=== PATIENT | male | born 1945 | race Caucasian/White ===

== ENCOUNTER 2018-04-13 15:58 | Emergency (ER) | payer OTHER, MEDICAID ==
[~2018-04-13] VITALS: Ht 160 cm; Wt 61.2 kg
[2018-04-13 16:00] VITALS: BP_SYST 100; BP_SYST 85
[2018-04-13 16:28] LABS: BASOPHILS % (AUTO) 0.8 % (0.0-2.0); EOSINOPHILS # (AUTO) 0.3 K/uL (0.0-0.4); EOSINOPHILS % (AUTO) 6.6 % (0.0-4.0); HEMATOCRIT 35.3 % (36-54); HEMOGLOBIN 11.3 g/dL (14.0-18.0); LYMPHOCYTES % (AUTO) 19.3 % (20.5-51.5); MEAN CORPUSCULAR HEMOGLOBIN 28 pg (27-31); MEAN CORPUSCULAR HGB CONC 32 % (32-36); MEAN CORPUSCULAR VOLUME 87 fL (79.0-98.0); MONOCYTES # (AUTO) 0.4 K/uL (0.0-1.0); MONOCYTES % (AUTO) 6.9 % (1.7-9.3); NEUTROPHILS # (AUTO) 3.4 K/uL (1.8-7.7); NEUTROPHILS % (AUTO) 66.4 % (40.0-70.0); PLATELET COUNT (AUTO) 205 K/uL (130-430); RED BLOOD CELL COUNT(AUTO) 4.06 MIL/uL (4.2-6.2); RED CELL DISTRIBUTION WIDTH 15.4 % (9.0-15.0); WHITE BLOOD COUNT (AUTO) 5.1 K/uL (4.8-10.8)
[2018-04-13 16:35] LABS: ANION GAP 7 (5-15); CALCIUM 8.4 mg/dL (8.4-11.0); CHLORIDE 102 mmol/L (98-107); CREATININE 0.92 mg/dL (0.55-1.30); GLUCOSE 103 mg/dL (70-99); POTASSIUM 3.7 mmol/L (3.5-5.1); SODIUM SERUM 139 mmol/L (136-145); UREA NITROGEN, BLOOD 18 mg/dL (8-21)
[2018-04-13] MEDS ORDERED: TIZA4TAB11 PO (16:36)
[2018-04-13] MEDS ORDERED: PIMA17TA PO (16:36)
[2018-04-13] MEDS ORDERED: ASCO500T20 PO (16:36)
[2018-04-13] MEDS ORDERED: NEU300 PO (16:36)
[2018-04-13] MEDS ORDERED: MULT PO (16:36)
[2018-04-13] MEDS ORDERED: CARB-62 PO (16:36)
[2018-04-13] MEDS ORDERED: PRAM0.5T3 PO (16:36)
[2018-04-13 16:47] LABS: ALANINE AMINOTRANSFERASE 9 U/L (12-78); ALBUMIN 3.1 g/dL (3.4-4.8); ASPARTATE AMINOTRANSFERASE 18 U/L (10-37); TOTAL BILIRUBIN 0.5 mg/dL (0.0-1.0)
[2018-04-13] MEDS ORDERED: LIDOCAINE 1% 10 MG/ML, 20 ML MDV INJ ONE (17:00)
[2018-04-13] MEDS ORDERED: LIDOCAINE/EPI 1% 1:100000 20 ML VIAL INJ ONE ×2 (17:21→17:30)
[2018-04-13 17:45] VITALS: BP_SYST 152
[2018-04-13] MEDS ORDERED: PRO40 PO (18:28)
[2018-04-13] MEDS ORDERED: HYDR-4100 PO (18:28)
[2018-04-13] MEDS ORDERED: DICL100G16 TP (18:28)
[2018-04-13] MEDS ORDERED: LIDOINT TP (18:28)
[2018-04-13] MEDS ORDERED: VITD2000 PO (18:28)
[2018-04-13] MEDS ORDERED: PRO20 PO (18:28)
== END 2018-04-13 18:15 | disposition home or self-care (01) ==
LOC: SED 15:58
DX: S01.81XA Laceration without foreign body of other part of head, initial encounter (principal); I10 Essential (primary) hypertension; G20 Parkinson's disease; Z87.442 Personal history of urinary calculi; Z79.899 Other long term (current) drug therapy; W01.198A Fall on same level from slipping, tripping and stumbling with subsequent striking against other object, initial encounter; Y93.89 Activity, other specified; Y92.89 Other specified places as the place of occurrence of the external cause; Y99.8 Other external cause status
CPT/HCPCS: 12011; 36415; 70450; 71045; 80053; 84484; 85025; 93005; 99285; J2001

== ENCOUNTER 2019-02-01 16:17 | Inpatient (IN) | payer OTHER, MEDICAID ==
[~2019-02-01] VITALS: Ht 177.8 cm; Wt 83.0 kg
[2019-02-01 16:17] VITALS: BP_SYST 122
[~2019-02-01 16:17] MED LIST: ASCO500T20 PO; CARB-62 PO; DICL100G19 TP; HYDR-4100 PO; LIDOINT TP; MULT PO; NEU300 PO; PIMA17TA PO; PRAM0.5T3 PO; PRO20 PO; PRO40 PO; TIZA4TAB11 PO; VITD2000 PO
--- NOTE | 2019-02-01 16:17 | NUR ---
BROUGHT IN BY [facility] AND PLACED IN BED #3, TRIAGED AND REPORT GIVEN TO HELEN
--- NOTE | 2019-02-01 16:30 | NUR ---
ER at bedside examining patient.
--- NOTE | 2019-02-01 16:45 | NUR ---
Inserted 22g angiocath on the RAC. Patient tolerated well.
[2019-02-01] MEDS ORDERED: NS 500 ML IV ONE (17:00)
--- NOTE | 2019-02-01 17:10 | NUR ---
Patiient is currently received IVF. No signs of distress noted at the moment.
[2019-02-01 17:28] LABS: BASOPHILS % (AUTO) 0.4 % (0.0-2.0); EOSINOPHILS % (AUTO) 0.7 % (0.0-4.0); HEMATOCRIT 42.7 % (36-54); LYMPHOCYTES # (AUTO) 0.2 K/uL (1.0-5.5); LYMPHOCYTES % (AUTO) 5.1 % (20.5-51.5); MEAN CORPUSCULAR HEMOGLOBIN 31 pg (27-31); MEAN CORPUSCULAR HGB CONC 33 % (32-36); MEAN CORPUSCULAR VOLUME 94 fL (79.0-98.0); MONOCYTES # (AUTO) 0.2 K/uL (0.0-1.0); MONOCYTES % (AUTO) 3.8 % (1.7-9.3); NEUTROPHILS # (AUTO) 3.8 K/uL (1.8-7.7); PLATELET COUNT (AUTO) 159 K/uL (130-430); RED BLOOD CELL COUNT(AUTO) 4.53 MIL/uL (4.2-6.2); RED CELL DISTRIBUTION WIDTH 14.5 % (9.0-15.0); WHITE BLOOD COUNT (AUTO) 4.2 K/uL (4.8-10.8)
[2019-02-01 17:42] LABS: ANION GAP 0 (5-15); CALCIUM 9.1 mg/dL (8.4-11.0); CHLORIDE 102 mmol/L (98-107); GLUCOSE 106 mg/dL (70-99); POTASSIUM 4.2 mmol/L (3.5-5.1); SODIUM SERUM 132 mmol/L (136-145); UREA NITROGEN, BLOOD 19 mg/dL (8-21)
[2019-02-01 17:43] LABS: INR 1.1 (0.80-1.20); PROTHROMBIN TIME 11.3 SECS (9.5-12.5)
[2019-02-01 17:47] LABS: ALANINE AMINOTRANSFERASE 11 U/L (12-78); ALBUMIN 3.2 g/dL (3.4-4.8); ASPARTATE AMINOTRANSFERASE 20 U/L (10-37); TOTAL BILIRUBIN 1.6 mg/dL (0.0-1.0)
[2019-02-01] MEDS ORDERED: PIPERACILLIN/TAZO 3.375 GM in NS 50 ML IV ONE (18:15)
[2019-02-01] MEDS ORDERED: NACL 0.9% 1,000 ML IV ONE (18:15)
[2019-02-01] MEDS ORDERED: NACL 0.9% 2,000 ML IV ONE (18:15)
--- NOTE | 2019-02-01 18:42 | NUR ---
Waiting for a room Spoke with Nany MALIK. Stated that she will call back with a room
[2019-02-01 19:14] VITALS: BP_SYST 122
[2019-02-01] MEDS ORDERED: AZITHROMYCIN 500 MG in NS 250 ML IV ONE ×2 (19:15→23:00)
--- NOTE | 2019-02-01 19:20 | NUR ---
Hand off report given to NOC shift RN. Still waiting for a tele bed.
[2019-02-01] MEDS ORDERED: PIPERACILLIN/TAZOBACTAM 3.375 GM/VIAL (ZOSYN) IV ONE (19:35)
[2019-02-01] MEDS ORDERED: AZITHROMYCIN 500 MG/VIAL (ZITHROMAX) IV ONE (19:36)
[2019-02-01 20:09] VITALS: BP_SYST 125
--- NOTE | 2019-02-01 20:09 | NUR ---
ADMISSION NOTE Received patient from ER via paul, received report from CELIA GONZALEZ. Patient admitted with diagnosis of SEPSIS, PNEUMONIA. Patient oriented to hospital routine, call light, toileting and safety-patient verbalized understanding.
--- NOTE | 2019-02-01 20:09 | NUR ---
Transfer to Telemetry via ACLS protocol. Licensed nurse present. IV present no signs or symptoms of infiltration.
--- NOTE | 2019-02-01 20:09 | NUR ---
Patient will be admitted to care of Dr. Ji. Admitted to Telemetry unit. Will go to room 104A. Belongings list completed. Summary report printed. Report will be given at bedside.
--- NOTE | 2019-02-01 20:45 | NUR ---
NOTES: report given to me by nurse Vikki, admitted from ER.
[2019-02-01] MEDS: IPRATROPIUM/ALBUTEROL SULFATE 3 ML AMPUL.NEB (DUONEB) INH SCH (21:01)
[2019-02-01] MEDS ORDERED: DICLOFENAC SODIUM 1% TP PRN (21:30)
[2019-02-01] MEDS ORDERED: LIDOCAINE TOPICAL OINT 5%, 35 GM TP PRN (21:30)
[2019-02-01] MEDS ORDERED: ACETAMINOPHEN 650 MG SUPP.RECT RC PRN (21:30)
--- NOTE | 2019-02-01 22:00 | NUR ---
NOTES: pt. sleeping but arousable when checked, disoriented but knows his name and able to follow simple commands. VS was check and with temp 102, still waiting for admission orders. on cafeteria monitor and shows sinus rhythm. IV on rt. antecubital with NS infusing but site gets sluggish, IV zithromax just finished. IV pump keeps alarming, checked site and occluded, unable to flush.safety measures observed, bed alarm, pt. high risk for fall with history and also fell before admission. admission physical assessment done. noted skin abrasions on both knees. cleanse both knees and applied biatin dressing by nurse Florez.
--- NOTE | 2019-02-01 22:15 | NUR ---
NOTES: Dr. Ji here seen pt. with nurse Vikki, admission orders pending. aware of the fever, pt. already on antibiotic.
--- NOTE | 2019-02-01 23:30 | NUR ---
NOTES: complete bath and linen change, with diaper on arrival and soaked, incontinent of urine. noted skin on sacral/buttock area, appears red and irritated ( dermatitis) due to urinary incontinence. picture taken and triad cream applied after. another IV site inserted on rt. forearm and resume IVF.
--- NOTE | 2019-02-01 23:45 | NUR ---
NOTES: pt. grandson Rich called who is also his caregiver, gave some informations and updated on pt. status.
--- NOTE | 2019-02-02 00:10 | NUR ---
NOTES: rechecked temp 100.7, Tylenol po given as ordered and able to swallow pills. continue to monitor.
--- NOTE | 2019-02-02 01:00 | NUR ---
NOTES: recheck temp 98.4 via temporal.pt. sleeping.
[2019-02-02] MEDS ORDERED: PIPERACILLIN/TAZOBACTAM 3.375 GM/VIAL (ZOSYN) IV ONE (01:17)
[2019-02-02 01:20] VITALS: BP_SYST 129
[2019-02-02] MEDS: PIPERACILLIN/TAZO 3.375/DEX-IS 50 ML IV SCH ×4 (02:13→19:54)
--- NOTE | 2019-02-02 03:25 | NUR ---
NOTES: pt. sleeping when checked in no acute distress. HR @ 58 on the monitor per tech, continue to observe.
--- NOTE | 2019-02-02 04:46 | NUR ---
Consultation Paged Reason for Consultation: Ataxia Was consult called: Y Person who was notified: Dillan Consulting Physician: Evelio Mera (Mono Mishra commissioning agent) Regional Environmental Manager Phone Number: Dr. Marin's Phone number [phone] Ordering Physician: Dr. Ji
--- NOTE | 2019-02-02 06:00 | NUR ---
NOTES: condition unchanged. IV lock on rt. forearm and left ac. IV NS 2 liters infused. pt. incontinent of urine. for further care and assistance. maintained bed rest. sched for CT of chest. call light within reach. bed rails up, bed alarm on.call light within reach.
[2019-02-02 06:40] LABS: BASOPHILS % (AUTO) 0.3 % (0.0-2.0); EOSINOPHILS # (AUTO) 0.1 K/uL (0.0-0.4); EOSINOPHILS % (AUTO) 0.9 % (0.0-4.0); HEMATOCRIT 35.5 % (36-54); HEMOGLOBIN 11.8 g/dL (14.0-18.0); LYMPHOCYTES # (AUTO) 0.6 K/uL (1.0-5.5); LYMPHOCYTES % (AUTO) 11.3 % (20.5-51.5); MEAN CORPUSCULAR HEMOGLOBIN 31 pg (27-31); MEAN CORPUSCULAR HGB CONC 33 % (32-36); MEAN CORPUSCULAR VOLUME 93 fL (79.0-98.0); MONOCYTES # (AUTO) 0.4 K/uL (0.0-1.0); MONOCYTES % (AUTO) 7.9 % (1.7-9.3); NEUTROPHILS # (AUTO) 4.5 K/uL (1.8-7.7); NEUTROPHILS % (AUTO) 79.6 % (40.0-70.0); PLATELET COUNT (AUTO) 129 K/uL (130-430); RED BLOOD CELL COUNT(AUTO) 3.83 MIL/uL (4.2-6.2); RED CELL DISTRIBUTION WIDTH 14.7 % (9.0-15.0); WHITE BLOOD COUNT (AUTO) 5.7 K/uL (4.8-10.8)
[2019-02-02 06:43] LABS: ANION GAP 6 (5-15); CHLORIDE 106 mmol/L (98-107); CREATININE 0.94 mg/dL (0.55-1.30); GLUCOSE 96 mg/dL (70-99); POTASSIUM 3.4 mmol/L (3.5-5.1); SODIUM SERUM 139 mmol/L (136-145); UREA NITROGEN, BLOOD 18 mg/dL (8-21)
--- NOTE | 2019-02-02 06:54 | NUR ---
CLOSING NOTES; PT. STILL ASLEEP, NO ACUTE DISTRESS. ON ROOM AIR. IV LOCK INTACT. BOTH KNEE DRESSING INTACT.
[2019-02-02] MEDS: IPRATROPIUM/ALBUTEROL SULFATE 3 ML AMPUL.NEB (DUONEB) INH SCH ×5 (07:41→19:57)
--- NOTE | 2019-02-02 08:00 | NUR ---
Initial notes: Patient awake, alert and oriented. Stable. I.V. access patent. Call light within reach. Safety measures in placed. Report received from CELIA Salvador.
[2019-02-02 08:10] VITALS: BP_SYST 110
[2019-02-02] MEDS: PRAMIPEXOLE DI-HCL 0.25 MG TABLET PO SCH ×3 (08:47→20:06)
[2019-02-02] MEDS: ASCORBIC ACID 500 MG TABLET PO SCH (08:47)
[2019-02-02] MEDS: MULTIVITAMINS TAB 1 TABLET PO SCH (08:47)
[2019-02-02] MEDS: FLUoxetine HCL 20 MG CAPSULE (PROzac) PO SCH (08:47)
[2019-02-02] MEDS: GABAPENTIN 300 MG CAPSULE PO SCH ×3 (08:47→20:07)
[2019-02-02] MEDS: CHOLECALCIFEROL (VITAMIN D3) 2,000 UNIT TABLET PO SCH (08:48)
[2019-02-02] MEDS: PANTOPRAZOLE SODIUM 40 MG TAB PO SCH (08:48)
[2019-02-02] MEDS: tiZANidine HCL 4 MG TABLET PO SCH ×3 (08:50→20:10)
[2019-02-02] MEDS ORDERED: PIMAVANSERIN TARTRATE 17 MG PO SCH (09:00)
[2019-02-02] MEDS ORDERED: LIDOCAINE TOPICAL OINT 5%, 35 GM TP PRN (09:15)
[2019-02-02] MEDS: CARBIDOPA/LEVODOPA 25/250 MG TABLET PO SCH ×4 (09:38→20:06)
[2019-02-02 11:32] VITALS: BP_SYST 108
[2019-02-02] MEDS ORDERED: POTASSIUM CHLORIDE 20 MEQ TAB.PRT.SR PO ONE (12:00)
--- NOTE | 2019-02-02 12:30 | NUR ---
Fidelia rounds: Seen by Dr. Ji with new orders.
[2019-02-02] MEDS ORDERED: POTASSIUM CHLORIDE 40 MEQ, LIDOCAINE JECT 2% PF 100 MG 50 MG in NS 250 ML IV ONE (13:00)
--- NOTE | 2019-02-02 13:31 | NUR ---
INFECTIOUS CONSULT SPOKE TO KAVON CARDONA MADE AWARE OF CONSULTCHEW CLAY PROCESSING FACTORY WORKER FOR DR ANDREW.
[2019-02-02] MEDS: ACETAMINOPHEN 325 MG TABLET PO PRN ×2 (14:38)
[2019-02-02 16:55] VITALS: BP_SYST 123
[2019-02-02 16:59] LABS: BILIRUBIN,URINE NEGATIVE (NEGATIVE); CLARITY/URINE SL HAZY (CLEAR); COLOR,URINE YELLOW (YELLOW); GLUCOSE,URINE NEGATIVE (NEGATIVE); KETONES,URINE 1+ (NEGATIVE); LEUKOCYTE ESTERASE ,URINE TRACE (NEGATIVE); NITRITE, URINE NEGATIVE (NEGATIVE); PROTEIN URINE NEGATIVE (NEGATIVE)
[2019-02-02 17:00] LABS: BLOOD, URINE TRACE (NEGATIVE)
--- NOTE | 2019-02-02 17:05 | NUR ---
urine sample: Patient while straight cath on going, voided and able to cath the urine at midstream. Urine sample sent to lab.
[2019-02-02 17:12] LABS: RBC,URINE 0-3 /HPF (0-3)
[2019-02-02 17:13] LABS: BACTERIA,URINE FEW /HPF (None Seen); MUCUS,URINE None Seen /LPF (None Seen)
--- NOTE | 2019-02-02 17:40 | NUR ---
Confuse: Patient had an episode of confusion. He threw the dinner food tray. Saying "Someone will bust him". He's saying things or stories.
--- NOTE | 2019-02-02 18:22 | NUR ---
Closing notes: Patient on bed resting. Stable. Needs attended. Call light within reach. Safety measures in placed. Report will be given to filing or registry clerk.
--- NOTE | 2019-02-02 18:34 | NUR ---
BRANDON EVAL CONSULTATION PAGED/CALLED Reason for Consultation: SWALLOW EVAL Person Who was Notified: CALLED SHREE LEFT MESSAGE Consulting Physician: Box Fabricator Specialty:SPEECH Ordering Physician: DALILA
--- NOTE | 2019-02-02 19:25 | NUR ---
OPENING NOTES Pt and endorsement received from day shift nurse. Pt is awake, alert, oriented, and lying in bed. No complains of pain at this time. No signs of acute distress or SOB noted. Encouraged to use call light when needed. Safety precautions in place with 3 side rails up, bed alarm on, locked and in lowest position. Call light with pt. Will continue to monitor.
[2019-02-02 20:02] VITALS: BP_SYST 150
[2019-02-02] MEDS: AZITHROMYCIN 500 MG in NS 250 ML IV SCH (20:10)
--- NOTE | 2019-02-02 23:30 | NUR ---
PT TRIED TO GET UP/IV REINSERTION Pt tried to get up and is sitting at the edge of the bed and accidentally pulled his IV. Assisted pt to lie down and positioned him comfortably. IV reinsertion done on right forearm G22, with good blood return and flushable with saline. Pt tolerated well. No complains of pain or discomfort. No signs of acute distress or SOB noted. Encouraged and reoriented pt with use of call light. Safety precautions in place. Will continue to monitor.
[2019-02-03 00:24] VITALS: BP_SYST 152
[2019-02-03] MEDS: PIPERACILLIN/TAZO 3.375/DEX-IS 50 ML IV SCH ×2 (01:46→08:25)
--- NOTE | 2019-02-03 02:00 | NUR ---
RESTING Pt is resting in bed with both eyes closed. With visible chest rise and fall with unlabored breathing noted. Pt is easily arousable. No signs of acute distress or SOB noted. Safety precautions in place and call light with pt. Will continue to monitor.
--- NOTE | 2019-02-03 04:10 | NUR ---
ROUNDS Pt is awake, alert and lying in bed. Pt is moving around the bed and trying to get up. Cleaned and changed pt's chux and gown. Pt is confused and states "I had a surgery yesterday." Reoriented pt on time, place and events. Encouraged pt to rest and sleep. No signs of acute distress or SOB noted. Safety precautions in place and call light with pt. Will continue to monitor.
[2019-02-03] MEDS: HYDROcodone/ACETAMIN 10-325 MG TAB PO PRN ×3 (04:51→21:57)
--- NOTE | 2019-02-03 05:30 | NUR ---
ASSISTED TO THE RESTROOM Pt was assisted to the restroom by CELIA Hess and back to bed. Pt tolerated well. Pt had a bowel movement. Safety precautions in place and call light with pt. Will continue to monitor.
--- NOTE | 2019-02-03 06:08 | NUR ---
SPOKE TO DR. CONNER Spoke to Dr. Conner regarding pt been constantly trying to get off the bed since 4am. Pt is also confused at this time. Dr. Conner ordered a bedside sitter. Read back order and will carry out.
[2019-02-03] MEDS: PANTOPRAZOLE SODIUM 40 MG TAB PO SCH (06:20)
--- NOTE | 2019-02-03 06:45 | NUR ---
CLOSING NOTES Pt is awake and confused at this time. No complains of pain or discomfort. No signs of acute distress or SOB noted. All needs attended throughout the shift. Safety precautions in place with 3 side rails up, bed alarm on, locked and in lowest position. Call light with pt. Will endorse to day shift nurse.
--- NOTE | 2019-02-03 06:56 | NUR ---
Nutrition Update Bryce Scale 16 noted. Pt admitted for sepsis, pneumonia Diet: pureed BMI: 26.3 kg/m2 RD to follow per nutrition care standards.
[2019-02-03 06:58] LABS: BASOPHILS % (AUTO) 0.4 % (0.0-2.0); EOSINOPHILS # (AUTO) 0.1 K/uL (0.0-0.4); EOSINOPHILS % (AUTO) 3.4 % (0.0-4.0); HEMATOCRIT 37.6 % (36-54); HEMOGLOBIN 12.6 g/dL (14.0-18.0); LYMPHOCYTES # (AUTO) 0.4 K/uL (1.0-5.5); LYMPHOCYTES % (AUTO) 9.9 % (20.5-51.5); MEAN CORPUSCULAR HEMOGLOBIN 31 pg (27-31); MEAN CORPUSCULAR HGB CONC 34 % (32-36); MEAN CORPUSCULAR VOLUME 91 fL (79.0-98.0); MONOCYTES # (AUTO) 0.3 K/uL (0.0-1.0); MONOCYTES % (AUTO) 6.7 % (1.7-9.3); NEUTROPHILS # (AUTO) 3.5 K/uL (1.8-7.7); NEUTROPHILS % (AUTO) 79.6 % (40.0-70.0); PLATELET COUNT (AUTO) 176 K/uL (130-430); RED BLOOD CELL COUNT(AUTO) 4.11 MIL/uL (4.2-6.2); RED CELL DISTRIBUTION WIDTH 14.2 % (9.0-15.0); WHITE BLOOD COUNT (AUTO) 4.4 K/uL (4.8-10.8)
[2019-02-03] MEDS: IPRATROPIUM/ALBUTEROL SULFATE 3 ML AMPUL.NEB (DUONEB) INH SCH ×5 (07:15→20:18)
[2019-02-03 07:37] LABS: ANION GAP 9 (5-15); CALCIUM 8.3 mg/dL (8.4-11.0); CHLORIDE 105 mmol/L (98-107); CREATININE 0.89 mg/dL (0.55-1.30); GLUCOSE 96 mg/dL (70-99); POTASSIUM 3.4 mmol/L (3.5-5.1); SODIUM SERUM 140 mmol/L (136-145); UREA NITROGEN, BLOOD 14 mg/dL (8-21)
--- NOTE | 2019-02-03 08:00 | NUR ---
initial notes rec patient awake with periods of confusion. ivf infusing well on the r forearm. no infiltration. with a d.o at bedside. resp easy and unlabored. no sob noted. call light withn reached.
[2019-02-03] MEDS: CARBIDOPA/LEVODOPA 25/250 MG TABLET PO SCH ×4 (08:27→21:56)
[2019-02-03] MEDS: tiZANidine HCL 4 MG TABLET PO SCH ×3 (08:27→21:55)
[2019-02-03] MEDS: FLUoxetine HCL 20 MG CAPSULE (PROzac) PO SCH (08:27)
[2019-02-03] MEDS: ASCORBIC ACID 500 MG TABLET PO SCH (08:27)
[2019-02-03] MEDS: CHOLECALCIFEROL (VITAMIN D3) 2,000 UNIT TABLET PO SCH (08:27)
[2019-02-03] MEDS: PRAMIPEXOLE DI-HCL 0.25 MG TABLET PO SCH ×3 (08:27→21:55)
[2019-02-03] MEDS: MULTIVITAMINS TAB 1 TABLET PO SCH (08:27)
[2019-02-03 08:33] VITALS: BP_SYST 157
[2019-02-03] MEDS: GABAPENTIN 300 MG CAPSULE PO SCH ×3 (08:53→21:56)
[2019-02-03 12:39] VITALS: BP_SYST 150
--- NOTE | 2019-02-03 12:49 | NUR ---
Dietitian Recommendations *Recommend Pureed diet w/ Ensure Enlive TID. ONS provides additional 1050 kcal and 60 gm protein daily. *Recommend megace QD. Please see Nutritional Assessment for details. FDC, RD
--- NOTE | 2019-02-03 13:09 | NUR ---
S.T. SWALLOW EVAL COMPLETED. PT PRESENTS W/ ML PHARYNGEAL DYSPHAGIA CHARACTERIZED BY ML DELAYED SWALLOW AT TIMES. NO S/S OF ASPIRATION FOR PUREE AND THIN/THICK LIQUIDS. REC: PUREE DIET. THIN LIQUIDS OK. NURSE RUBI NOTIFIED. G8996 CK G8997 CK G8998 CK NOMS LEVEL 4
--- NOTE | 2019-02-03 13:15 | NUR ---
rounds pt was taken to mri via wheelchair. seen by dr nam
[2019-02-03] MEDS ORDERED: LORazepam 2 MG/ML VIAL IVP ONE (14:00)
[2019-02-03] MEDS ORDERED: LORazepam 2 MG/ML VIAL ONE (14:04)
--- NOTE | 2019-02-03 14:19 | NUR ---
rounds completed test for the ultrasound. will go again for mri of the brain.
--- NOTE | 2019-02-03 14:46 | NUR ---
CONSULTATION PAGED/CALLED Reason for Consultation: EXERTIONAL CP Person Who was Notified: SPOKE WITH NIKI FROM OFFICE Consulting Physician: Ob Gyn Specialty: CARDIO Ordering Physician:
[2019-02-03] MEDS: cefTRIAXone 1 GM in D5W 50 ML IV SCH (14:53)
--- NOTE | 2019-02-03 16:00 | NUR ---
Wound Evaluation: Late note for 02/03/19 at 1600 secondary to patient care. Wound Consult ordered for Low Bryce Score. Patient evaluated for a low Bryce score of 16. Patient was awake, drowsy, confused, and received in a Gatito Bed with an IsoFlex YAYA mattress. Patient needs assist to turn in bed. Skin is fair (-). Recommend encourage and assist patient as needed with repositioning side to side only every 2 hours with pillow support. Elevate, off-load and float bilateral heels with pillows. Offload pressure areas with pillows for pressure re-distribution. Perform skin care and monitor skin integrity Q shift. Use moisture barrier cream on moisture susceptible areas QID and PRN for soiling. Initiate low air-loss therapy by adding an air pump to the mattress. Skin assessment: 1. Sacral/Buttocks/Perineal areas: IAD with erythema and fungal rash, present on admission. No odor, no drainage. Recommend: Cleanse involved areas with mild soap and water. Pat dry. Apply antifungal powder to involved areas. Perform site care twice a day, and as needed for soiling. 2. Gluteal sulcus: Intertrigo, present on admission. Site has 100% dry flaky skin. No odor, no drainage. Skin appears to be ready to fall off soon. Sight measures 1.5 cm x 0.5 cm. Recommend: Cleanse involved area with mild soap and water. Pat dry. Apply moisture barrier cream to involved area. Perform site care qidp, for soiling. 3. Left Knee: Chronic wound with dry scab, present on admission. Wound bed has 100% black scab. No odor, no drainage. Sanna-wound intact. Wound measures 2.2 cm x 1.3 cm. 4. Left Knee, Inferior Wound: Chronic wound with dry scab, present on admission. Wound bed has 100% black scab. No odor, no drainage. Sanna-wound intact. Wound measures 1.5 cm x 1.4 cm. Recommend: No dressings needed. Continue to monitor sites for worsening condition. Contact wound care nurse if sites open or drain. 5. Right Knee: Wound, present on admission. Wound bed has 85% pink tissue, 15% black scab. No odor, scant sanguineous drainage. Periwound intact. Wound measures 2.3 cm x 1.8 cm. Recommend: Cleanse wound with normal saline. Apply sure prep to periwound. Apply hydrogel to wound bed. Cover with foam dressing. Perform wound care daily, and as needed for dressing soiling or dislodgment.
[2019-02-03 16:40] VITALS: BP_SYST 140
[2019-02-03] MEDS ORDERED: POTASSIUM CHLORIDE 20 MEQ TAB.PRT.SR PO ONE (16:45)
--- NOTE | 2019-02-03 18:30 | NUR ---
closing notes late entry continue to sleep but arousable to stimuli. with a sitter at bedside. no osb noted. bed to the lowest position and side rails up and locked.
[2019-02-03 20:33] VITALS: BP_SYST 143
--- NOTE | 2019-02-03 20:33 | NUR ---
Opening notes Pt AAOx2, VSS, afebrile. No acute distress noted. R. FA 22 IV infiltrated. DC'd IV cath tip intact. Elevated arm on pillow. AN restarted new IV on L. FA 22G good blood return, wrapped in kerlix. Michael knees with scabs, cleansed with NS and applied optifoam dressings. D.O. at bedside. Bed low, locked, alarm on. To monitor.
[2019-02-03] MEDS: AZITHROMYCIN 500 MG in NS 250 ML IV SCH (20:38)
--- NOTE | 2019-02-03 21:30 | NUR ---
Pt refused meds Pt awake, confused. Pt c/o pain R. arm, attempted to medicate with [place] and HS meds, but pt refused meds and spit it out. D.O. at bedside. To monitor.
[2019-02-04 00:03] VITALS: BP_SYST 156
--- NOTE | 2019-02-04 00:10 | NUR ---
Rounds Pt resting in bed, eyes closed, calm. No s/s distress noted. VSS. D.O. at bedside. To monitor.
--- NOTE | 2019-02-04 03:05 | NUR ---
Rounds Pt awake, restless. No s/s distress noted. IV L. FA 22 clear, intact wrapped in gauze. D.O. at bedside. Safety measures in place. To monitor.
[2019-02-04] MEDS: IPRATROPIUM/ALBUTEROL SULFATE 3 ML AMPUL.NEB (DUONEB) INH SCH ×6 (06:00→15:00)
[2019-02-04] MEDS: PANTOPRAZOLE SODIUM 40 MG TAB PO SCH (06:39)
[2019-02-04] MEDS: ACETAMINOPHEN 325 MG TABLET PO PRN ×2 (06:40→13:47)
--- NOTE | 2019-02-04 06:40 | NUR ---
Closing notes Pt awake, calm, eyes closed, c/o headache. Medicated with Tylenol 2 tabs PO as needed. Pt more cooperative. IV saline lock L. FA 22G clear, patent. Sitter at bedside. Safety measures in place. To endorse to AM nurse.
[2019-02-04 07:19] LABS: BASOPHILS % (AUTO) 0.3 % (0.0-2.0); EOSINOPHILS # (AUTO) 0.1 K/uL (0.0-0.4); EOSINOPHILS % (AUTO) 1.8 % (0.0-4.0); HEMATOCRIT 42.5 % (36-54); HEMOGLOBIN 14.2 g/dL (14.0-18.0); LYMPHOCYTES # (AUTO) 0.6 K/uL (1.0-5.5); LYMPHOCYTES % (AUTO) 10.2 % (20.5-51.5); MEAN CORPUSCULAR HEMOGLOBIN 31 pg (27-31); MEAN CORPUSCULAR HGB CONC 33 % (32-36); MEAN CORPUSCULAR VOLUME 92 fL (79.0-98.0); MONOCYTES # (AUTO) 0.4 K/uL (0.0-1.0); MONOCYTES % (AUTO) 7.2 % (1.7-9.3); NEUTROPHILS # (AUTO) 4.9 K/uL (1.8-7.7); NEUTROPHILS % (AUTO) 80.5 % (40.0-70.0); PLATELET COUNT (AUTO) 223 K/uL (130-430); RED BLOOD CELL COUNT(AUTO) 4.63 MIL/uL (4.2-6.2); WHITE BLOOD COUNT (AUTO) 6.1 K/uL (4.8-10.8)
[2019-02-04 07:26] VITALS: BP_SYST 134
--- NOTE | 2019-02-04 07:27 | NUR ---
Zahra, DISPATCHER CHIEF COAL SLURRY asked me to check patient's blood sugar since he was cool and clammy. Patient responsive and arousable. Blood sugar: 81, within normal limits. Informed DISPATCHER CHIEF COAL SLURRY to make sure patient eats breakfast. Informed night and day shift nurse of blood sugar.
[2019-02-04 07:30] LABS: ANION GAP 10 (5-15); CALCIUM 8.9 mg/dL (8.4-11.0); CHLORIDE 102 mmol/L (98-107); CREATININE 0.69 mg/dL (0.55-1.30); GLUCOSE 90 mg/dL (70-99); POTASSIUM 3.1 mmol/L (3.5-5.1); SODIUM SERUM 141 mmol/L (136-145); UREA NITROGEN, BLOOD 9 mg/dL (8-21)
--- NOTE | 2019-02-04 08:00 | NUR ---
initial notes rec patient asleep but arousable to stimuli. with periods of confusion noted. resp easy and unlabore. no sob noted. bed tp the lowest position and side rails up and locked. with a sitter at bedside. bed to the lowest positon and side rails up and locked.
[2019-02-04] MEDS ORDERED: POTASSIUM CHLORIDE 20 MEQ TAB.PRT.SR PO SCH (09:00)
[2019-02-04] MEDS: cefTRIAXone 1 GM in D5W 50 ML IV SCH (09:23)
[2019-02-04] MEDS ORDERED: LORazepam 2 MG/ML VIAL IVP ONE (09:30)
--- NOTE | 2019-02-04 09:40 | NUR ---
rounds seen by dr acevedo at bedside. echo cardio ekg done.
[2019-02-04] MEDS ORDERED: NYSTATIN 15 GM TOPICAL POWDER TP ONE (11:30)
--- NOTE | 2019-02-04 11:47 | NUR ---
MARILUZ Mgt: Spoke with Marc @ [facility] @ . Patient is accepted and room number is 15. Transportation has been setup with [facility] @ spoke with dispatch ( Carmen), car pick up driver time is at 4PM. MARILUZ contacted patient's ( Maddi Jerome) @ and informed her of the discharge to [facility]. Patient's agreed and approved of the discharge.
[2019-02-04 11:51] VITALS: BP_SYST 144
--- NOTE | 2019-02-04 12:00 | NUR ---
rounds pt back from mri via [employer].
[2019-02-04] MEDS ORDERED: ACET325T53 PO (13:46)
[2019-02-04] MEDS ORDERED: IPRA3AMP9 INH (13:46)
[2019-02-04] MEDS ORDERED: DOXY100C PO (13:46)
[2019-02-04] MEDS: CHOLECALCIFEROL (VITAMIN D3) 2,000 UNIT TABLET PO SCH (13:52)
[2019-02-04] MEDS: GABAPENTIN 300 MG CAPSULE PO SCH (13:52)
[2019-02-04] MEDS: ASCORBIC ACID 500 MG TABLET PO SCH (13:52)
[2019-02-04] MEDS: FLUoxetine HCL 20 MG CAPSULE (PROzac) PO SCH (13:52)
[2019-02-04] MEDS: MULTIVITAMINS TAB 1 TABLET PO SCH (13:52)
[2019-02-04] MEDS: tiZANidine HCL 4 MG TABLET PO SCH (13:52)
[2019-02-04] MEDS: PRAMIPEXOLE DI-HCL 0.25 MG TABLET PO SCH (13:52)
[2019-02-04] MEDS: CARBIDOPA/LEVODOPA 25/250 MG TABLET PO SCH (13:53)
[2019-02-04] MEDS ORDERED: POTA20TA83 PO (13:59)
[2019-02-04] MEDS ORDERED: FAMO20TA8 PO (13:59)
[2019-02-04 15:39] VITALS: BP_SYST 102
[2019-02-04 15:55] VITALS: BP_SYST 102
--- NOTE | 2019-02-04 16:35 | NUR ---
closing notes pt was discahrged to alva chavez. report given to july hinkle .id band was removed with the heplock on the the l forearm. stable, needs attended. no sob noted. stil with periods of confusion.
[2019-02-04] MEDS ORDERED: NYSTATIN 15 GM TOPICAL POWDER TP SCH (21:00)
== END 2019-02-04 16:20 | DRG 871 ==
LOC: SED 16:17 → STU 18:21 → SMU 02-02 15:14
PROVIDERS: ADMIT Internal Medicine; ATTEND Internal Medicine
DX: A41.9 Sepsis, unspecified organism (principal); J18.1 Lobar pneumonia, unspecified organism; G93.40 Encephalopathy, unspecified; N39.0 Urinary tract infection, site not specified; E87.2 Acidosis; F03.90 Unspecified dementia, unspecified severity, without behavioral disturbance, psychotic disturbance, mood disturbance, and anxiety; G20 Parkinson's disease; G89.4 Chronic pain syndrome; I10 Essential (primary) hypertension; M19.90 Unspecified osteoarthritis, unspecified site; E87.6 Hypokalemia; N45.3 Epididymo-orchitis; W05.0XXA Fall from non-moving wheelchair, initial encounter; Y93.89 Activity, other specified; Y92.89 Other specified places as the place of occurrence of the external cause; Z87.442 Personal history of urinary calculi; Y99.8 Other external cause status; Z79.899 Other long term (current) drug therapy
CPT/HCPCS: 36415; 70450-TC; 70551; 71045; 71250-TC; 72125-TC; 76870-TC; 80048; 80053; 81000-TC; 82962; 83605; 84132-TC; 84484; 85025; 85610-TC; 85730-TC; 86738; 87040-TC; 87086; 92610-GN; 93005; 93306; 94640; 94760; 96365; 96366; 96368; 96375; 96376; 97116-GP; 97530-GP; 99285; G0378; J0456; J0696; J2060; J2543; J3480; J7030; J7050; J7060; J7620

== ENCOUNTER 2019-03-28 05:09 | Emergency (ER) | payer OTHER, MEDICAID ==
[~2019-03-28] VITALS: Ht 177.8 cm; Wt 81.6 kg
[2019-03-28 05:09] VITALS: BP_SYST 151
[~2019-03-28 05:09] MED LIST changes: +ACET325T53 PO; -DICL100G19 TP; +DOXY100C PO; +FAMO20TA8 PO; -HYDR-4100 PO; +IPRA3AMP9 INH; -LIDOINT TP; +POTA20TA83 PO
[2019-03-28 08:55] VITALS: BP_SYST 142
== END 2019-03-28 08:55 | disposition home or self-care (01) ==
LOC: SED 05:09
DX: M54.2 Cervicalgia (principal); I10 Essential (primary) hypertension; G20 Parkinson's disease; M19.90 Unspecified osteoarthritis, unspecified site; Z87.442 Personal history of urinary calculi; Z79.899 Other long term (current) drug therapy; W01.0XXA Fall on same level from slipping, tripping and stumbling without subsequent striking against object, initial encounter; Y93.89 Activity, other specified; Y92.89 Other specified places as the place of occurrence of the external cause; Y99.8 Other external cause status
CPT/HCPCS: 70450-TC; 72125-TC; 99284

== ENCOUNTER 2019-11-21 14:42 | Inpatient (IN) | payer OTHER, MEDICAID ==
[~2019-11-21] VITALS: Ht 177.8 cm; Wt 61.7 kg
[2019-11-21] MEDS ORDERED: NACL 0.9% 2,000 ML IV ONE (15:11)
[2019-11-21] MEDS ORDERED: LEVOFLOXACIN 500 MG/D5W 100 ML IV ONE (15:15)
[2019-11-21] MEDS ORDERED: cefTRIAXone 1 GM IVPB PREMIX 50 ML IV ONE (15:15)
[2019-11-21 15:50] LABS: HEMATOCRIT 40.3 % (36-54); HEMOGLOBIN 13.2 g/dL (14.0-18.0); MEAN CORPUSCULAR HEMOGLOBIN 29 pg (27-31); MEAN CORPUSCULAR HGB CONC 33 % (32-36); MEAN CORPUSCULAR VOLUME 90 fL (79.0-98.0); PLATELET COUNT (AUTO) 137 K/uL (130-430); RED BLOOD CELL COUNT(AUTO) 4.47 MIL/uL (4.2-6.2); RED CELL DISTRIBUTION WIDTH 16.3 % (9.0-15.0)
[2019-11-21 15:55] LABS: ANION GAP 6 (5-15); CALCIUM 8.4 mg/dL (8.4-11.0); CHLORIDE 103 mmol/L (98-107); CREATININE 0.93 mg/dL (0.55-1.30); GLUCOSE 87 mg/dL (70-99); POTASSIUM 4.2 mmol/L (3.5-5.1); SODIUM SERUM 141 mmol/L (136-145); UREA NITROGEN, BLOOD 31 mg/dL (8-21)
[2019-11-21 15:59] LABS: WHITE BLOOD COUNT (AUTO) 2.6 K/uL (4.8-10.8)
[2019-11-21 16:00] LABS: ALANINE AMINOTRANSFERASE 8 U/L (12-78); ALBUMIN 2.9 g/dL (3.4-4.8); ASPARTATE AMINOTRANSFERASE 50 U/L (10-37); TOTAL BILIRUBIN 0.6 mg/dL (0.0-1.0)
[2019-11-21 16:10] LABS: ATYPICAL LYMPHOCYTES % 4 % (0-0); BAND % (MANUAL) 5 % (0-6); BASOPHILS % (MANUAL) 0 % (0-2); EOSINOPHILS % (MANUAL) 1 % (0-7); LYMPHOCYTES % (MANUAL) 12 % (20-46); MONOCYTES % (MANUAL) 4 % (0-11)
[2019-11-21 16:12] VITALS: BP_SYST 166
[2019-11-21] MEDS ORDERED: MEMA5TAB PO (19:05)
[2019-11-21] MEDS ORDERED: ACET325C6 PO (19:05)
[2019-11-21] MEDS ORDERED: DOCU-144 PO (19:05)
[2019-11-21] MEDS ORDERED: MULT-1117 PO (19:05)
[2019-11-21] MEDS ORDERED: NITSL SL (19:05)
[2019-11-21] MEDS ORDERED: DIVA250T PO (19:05)
[2019-11-21] MEDS ORDERED: CILO50TA PO (19:05)
[2019-11-21] MEDS ORDERED: guaiFENesin/DEXTROMETHORPHAN 10 ML UDC PO PRN (20:30)
[2019-11-21] MEDS ORDERED: NITROGLYCERIN 0.4 MG TAB.SUBL SL SCH (20:30)
[2019-11-21] MEDS ORDERED: QUEtiapine FUMARATE 25 MG TABLET PO SCH (21:00)
[2019-11-21] MEDS ORDERED: DIVALPROEX SODIUM 250 MG TAB.SR.24H (DEPAKOTE ER) PO SCH (21:00)
[2019-11-21] MEDS: D5LR 1,000 ML IV SCH (21:31)
[2019-11-21] MEDS: LACTOBACILLUS RHAMNOSUS GG 1 CAP CAPSULE PO SCH (21:31)
[2019-11-21] MEDS: ACETAMINOPHEN 325 MG TABLET PO PRN (21:31)
[2019-11-21] MEDS: OSELTAMIVIR PHOSPHATE 75 MG CAPSULE PO SCH (21:32)
[2019-11-21] MEDS: CARBIDOPA/LEVODOPA 25/250 MG TABLET PO SCH (21:32)
[2019-11-21] MEDS: GABAPENTIN 300 MG CAPSULE PO SCH (21:32)
[2019-11-21] MEDS: CILOSTAZOL 50 MG TABLET (PLETAL) PO SCH (21:32)
[2019-11-21] MEDS: PRAMIPEXOLE DI-HCL 0.25 MG TABLET PO SCH (21:32)
[2019-11-21] MEDS: tiZANidine HCL 4 MG TABLET PO SCH (21:32)
[2019-11-21] MEDS: DOCUSATE SODIUM 100 MG CAPSULE PO SCH (21:32)
[2019-11-21 21:46] VITALS: BP_SYST 153
[2019-11-22 00:48] VITALS: BP_SYST 141
[2019-11-22 03:56] LABS: BILIRUBIN,URINE NEGATIVE (NEGATIVE); BLOOD, URINE NEGATIVE (NEGATIVE); CLARITY/URINE CLEAR (CLEAR); COLOR,URINE YELLOW (YELLOW); GLUCOSE,URINE NEGATIVE (NEGATIVE); KETONES,URINE 1+ (NEGATIVE); LEUKOCYTE ESTERASE ,URINE NEGATIVE (NEGATIVE); NITRITE, URINE NEGATIVE (NEGATIVE); PROTEIN URINE NEGATIVE (NEGATIVE); UROBILINOGEN,URINE 0.2 (0.2-1.0)
[2019-11-22 06:53] LABS: BASOPHILS % (AUTO) 0.3 % (0.0-2.0); HEMATOCRIT 36.8 % (36-54); HEMOGLOBIN 12.2 g/dL (14.0-18.0); LYMPHOCYTES # (AUTO) 0.4 K/uL (1.0-5.5); LYMPHOCYTES % (AUTO) 12.1 % (20.5-51.5); MEAN CORPUSCULAR HEMOGLOBIN 30 pg (27-31); MEAN CORPUSCULAR HGB CONC 33 % (32-36); MEAN CORPUSCULAR VOLUME 89 fL (79.0-98.0); MONOCYTES # (AUTO) 0.2 K/uL (0.0-1.0); MONOCYTES % (AUTO) 6.9 % (1.7-9.3); NEUTROPHILS # (AUTO) 2.5 K/uL (1.8-7.7); PLATELET COUNT (AUTO) 125 K/uL (130-430); RED BLOOD CELL COUNT(AUTO) 4.12 MIL/uL (4.2-6.2); RED CELL DISTRIBUTION WIDTH 16.1 % (9.0-15.0); WHITE BLOOD COUNT (AUTO) 3.1 K/uL (4.8-10.8)
[2019-11-22 07:01] LABS: ALANINE AMINOTRANSFERASE 6 U/L (12-78); ALBUMIN 2.3 g/dL (3.4-4.8); ANION GAP 4 (5-15); ASPARTATE AMINOTRANSFERASE 44 U/L (10-37); CALCIUM 8.1 mg/dL (8.4-11.0); CHLORIDE 110 mmol/L (98-107); CREATININE 0.92 mg/dL (0.55-1.30); GLUCOSE 99 mg/dL (70-99); POTASSIUM 4.4 mmol/L (3.5-5.1); SODIUM SERUM 143 mmol/L (136-145); TOTAL BILIRUBIN 0.4 mg/dL (0.0-1.0); UREA NITROGEN, BLOOD 22 mg/dL (8-21)
[2019-11-22 07:16] LABS: NEUTROPHILS % (AUTO) 80.7 % (40.0-70.0)
[2019-11-22] MEDS: IPRATROPIUM/ALBUTEROL SULFATE 3 ML AMPUL.NEB (DUONEB) INH SCH ×3 (07:25→19:30)
[2019-11-22 08:15] VITALS: BP_SYST 151
[2019-11-22] MEDS: LACTOBACILLUS RHAMNOSUS GG 1 CAP CAPSULE PO SCH ×2 (08:54→22:22)
[2019-11-22] MEDS: CILOSTAZOL 50 MG TABLET (PLETAL) PO SCH ×2 (08:54→22:22)
[2019-11-22] MEDS: PRAMIPEXOLE DI-HCL 0.25 MG TABLET PO SCH ×3 (08:54→22:22)
[2019-11-22] MEDS: GABAPENTIN 300 MG CAPSULE PO SCH ×3 (08:55→22:22)
[2019-11-22] MEDS: MULTIVITAMINS TAB 1 TABLET PO SCH (08:55)
[2019-11-22] MEDS: ASCORBIC ACID 500 MG TABLET PO SCH (08:55)
[2019-11-22] MEDS: FAMOTIDINE 20 MG TABLET PO SCH (08:55)
[2019-11-22] MEDS: MEMANTINE HCL 5 MG TABLET PO SCH (08:55)
[2019-11-22] MEDS: OSELTAMIVIR PHOSPHATE 75 MG CAPSULE PO SCH ×2 (08:55→22:22)
[2019-11-22] MEDS: CARBIDOPA/LEVODOPA 25/250 MG TABLET PO SCH ×4 (08:55→22:22)
[2019-11-22] MEDS: DIVALPROEX SODIUM 250 MG TABLET(DEPAKOTE) PO SCH ×2 (08:56→22:22)
[2019-11-22] MEDS: tiZANidine HCL 4 MG TABLET PO SCH ×3 (08:57→22:22)
[2019-11-22] MEDS: DOCUSATE SODIUM 100 MG CAPSULE PO SCH ×2 (08:57→22:22)
[2019-11-22] MEDS: D5LR 1,000 ML IV SCH ×2 (10:04→22:26)
[2019-11-22] MEDS: ACETAMINOPHEN 325 MG TABLET PO PRN ×4 (11:13→23:39)
[2019-11-22 12:23] VITALS: BP_SYST 102
[2019-11-22] MEDS ORDERED: ONDANSETRON HCL 4 MG/2 ML VIAL IVP PRN (16:00)
[2019-11-22 16:29] VITALS: BP_SYST 108
[2019-11-22] MEDS: LEVOFLOXACIN 500 MG/D5W 100 ML IV SCH (16:31)
[2019-11-22] MEDS ORDERED: ACETAMINOPHEN 650 MG SUPP.RECT RC PRN (16:45)
[2019-11-22] MEDS ORDERED: QUEtiapine FUMARATE 25 MG TABLET PO SCH (18:00)
[2019-11-22 20:00] VITALS: BP_SYST 126
[2019-11-23 00:17] VITALS: BP_SYST 147
[2019-11-23 07:42] LABS: BASOPHILS % (AUTO) 0.4 % (0.0-2.0); EOSINOPHILS % (AUTO) 0.2 % (0.0-4.0); HEMATOCRIT 36.2 % (36-54); LYMPHOCYTES # (AUTO) 0.3 K/uL (1.0-5.5); LYMPHOCYTES % (AUTO) 17.9 % (20.5-51.5); MEAN CORPUSCULAR HEMOGLOBIN 30 pg (27-31); MEAN CORPUSCULAR HGB CONC 33 % (32-36); MEAN CORPUSCULAR VOLUME 90 fL (79.0-98.0); MONOCYTES # (AUTO) 0.1 K/uL (0.0-1.0); MONOCYTES % (AUTO) 5.7 % (1.7-9.3); NEUTROPHILS # (AUTO) 1.4 K/uL (1.8-7.7); PLATELET COUNT (AUTO) 97 K/uL (130-430); RED BLOOD CELL COUNT(AUTO) 4.04 MIL/uL (4.2-6.2); RED CELL DISTRIBUTION WIDTH 15.9 % (9.0-15.0)
[2019-11-23 08:00] VITALS: BP_SYST 130
[2019-11-23 08:18] LABS: ANION GAP 8 (5-15); CALCIUM 7.7 mg/dL (8.4-11.0); CHLORIDE 103 mmol/L (98-107); CREATININE 0.77 mg/dL (0.55-1.30); GLUCOSE 74 mg/dL (70-99); SODIUM SERUM 141 mmol/L (136-145); UREA NITROGEN, BLOOD 16 mg/dL (8-21)
[2019-11-23] MEDS: IPRATROPIUM/ALBUTEROL SULFATE 3 ML AMPUL.NEB (DUONEB) INH SCH ×4 (08:23→20:03)
[2019-11-23 08:27] LABS: WHITE BLOOD COUNT (AUTO) 1.8 K/uL (4.8-10.8)
[2019-11-23 08:41] LABS: POTASSIUM 2.6 mmol/L (3.5-5.1)
[2019-11-23] MEDS ORDERED: POTASSIUM CHLORIDE 40 MEQ in NS 250 ML IV ONE (09:00)
[2019-11-23] MEDS: LACTOBACILLUS RHAMNOSUS GG 1 CAP CAPSULE PO SCH ×2 (10:11→21:13)
[2019-11-23] MEDS: CILOSTAZOL 50 MG TABLET (PLETAL) PO SCH ×2 (10:11→21:13)
[2019-11-23] MEDS: FAMOTIDINE 20 MG TABLET PO SCH (10:11)
[2019-11-23] MEDS: OSELTAMIVIR PHOSPHATE 75 MG CAPSULE PO SCH ×2 (10:11→21:14)
[2019-11-23] MEDS: ASCORBIC ACID 500 MG TABLET PO SCH (10:12)
[2019-11-23] MEDS: MULTIVITAMINS TAB 1 TABLET PO SCH (10:12)
[2019-11-23] MEDS: CARBIDOPA/LEVODOPA 25/250 MG TABLET PO SCH ×4 (10:12→21:14)
[2019-11-23] MEDS: PRAMIPEXOLE DI-HCL 0.25 MG TABLET PO SCH ×3 (10:12→21:13)
[2019-11-23] MEDS: tiZANidine HCL 4 MG TABLET PO SCH ×3 (10:12→21:14)
[2019-11-23] MEDS: GABAPENTIN 300 MG CAPSULE PO SCH ×3 (10:12→21:14)
[2019-11-23] MEDS: DIVALPROEX SODIUM 250 MG TABLET(DEPAKOTE) PO SCH ×2 (10:12→21:13)
[2019-11-23] MEDS: DOCUSATE SODIUM 100 MG CAPSULE PO SCH ×2 (10:13→21:13)
[2019-11-23] MEDS: MEMANTINE HCL 5 MG TABLET PO SCH (10:15)
[2019-11-23 11:04] LABS: NEUTROPHILS % (AUTO) 75.8 % (40.0-70.0)
[2019-11-23 12:26] VITALS: BP_SYST 126
[2019-11-23] MEDS ORDERED: MUPIROCIN 2% TOPICAL OINTMENT 22 GM NS ONE (15:00)
[2019-11-23 16:20] VITALS: BP_SYST 109
[2019-11-23] MEDS ORDERED: POTASSIUM CHLORIDE 40 MEQ, LIDOCAINE JECT 2% PF 100 MG 50 MG in NS 250 ML IV ONE (17:00)
[2019-11-23 17:24] LABS: ANION GAP 5 (5-15); CALCIUM 7.4 mg/dL (8.4-11.0); CHLORIDE 105 mmol/L (98-107); CREATININE 0.61 mg/dL (0.55-1.30); GLUCOSE 94 mg/dL (70-99); POTASSIUM 3.4 mmol/L (3.5-5.1); SODIUM SERUM 139 mmol/L (136-145); UREA NITROGEN, BLOOD 15 mg/dL (8-21)
[2019-11-23] MEDS ORDERED: MAGNESIUM SULFATE 50 ML IV ONE (17:45)
[2019-11-23 17:56] LABS: HEMATOCRIT 32.2 % (36-54); HEMOGLOBIN 10.7 g/dL (14.0-18.0); MEAN CORPUSCULAR HEMOGLOBIN 30 pg (27-31); MEAN CORPUSCULAR HGB CONC 33 % (32-36); MEAN CORPUSCULAR VOLUME 89 fL (79.0-98.0); PLATELET COUNT (AUTO) 100 K/uL (130-430); RED BLOOD CELL COUNT(AUTO) 3.63 MIL/uL (4.2-6.2); RED CELL DISTRIBUTION WIDTH 15.4 % (9.0-15.0)
[2019-11-23] MEDS: LEVOFLOXACIN 500 MG/D5W 100 ML IV SCH (17:56)
[2019-11-23] MEDS: QUEtiapine FUMARATE 25 MG TABLET PO SCH (17:57)
[2019-11-23 18:00] LABS: WHITE BLOOD COUNT (AUTO) 1.9 K/uL (4.8-10.8)
[2019-11-23] MEDS: D5LR 1,000 ML IV SCH (18:06)
[2019-11-23 19:06] LABS: BAND % (MANUAL) 18 % (0-6); BASOPHILS % (MANUAL) 0 % (0-2); EOSINOPHILS % (MANUAL) 0 % (0-7); LYMPHOCYTES % (MANUAL) 25 % (20-46); MONOCYTES % (MANUAL) 6 % (0-11)
[2019-11-23 19:30] VITALS: BP_SYST 126
[2019-11-23] MEDS: MUPIROCIN 2% TOPICAL OINTMENT 22 GM NS SCH (21:08)
[2019-11-23] MEDS: ACETAMINOPHEN 325 MG TABLET PO PRN (21:13)
[2019-11-23] MEDS: POTASSIUM CHLORIDE 20 MEQ TAB.PRT.SR PO SCH (21:13)
[2019-11-24 00:29] VITALS: BP_SYST 109
[2019-11-24] MEDS: IPRATROPIUM/ALBUTEROL SULFATE 3 ML AMPUL.NEB (DUONEB) INH SCH ×4 (07:14→19:53)
[2019-11-24 07:15] VITALS: BP_SYST 109
[2019-11-24 07:16] LABS: BASOPHILS % (AUTO) 0.5 % (0.0-2.0); EOSINOPHILS % (AUTO) 2.2 % (0.0-4.0); HEMATOCRIT 34.6 % (36-54); HEMOGLOBIN 11.5 g/dL (14.0-18.0); LYMPHOCYTES # (AUTO) 0.5 K/uL (1.0-5.5); LYMPHOCYTES % (AUTO) 24.9 % (20.5-51.5); MEAN CORPUSCULAR HEMOGLOBIN 30 pg (27-31); MEAN CORPUSCULAR HGB CONC 33 % (32-36); MEAN CORPUSCULAR VOLUME 89 fL (79.0-98.0); MONOCYTES # (AUTO) 0.2 K/uL (0.0-1.0); MONOCYTES % (AUTO) 11.1 % (1.7-9.3); NEUTROPHILS # (AUTO) 1.2 K/uL (1.8-7.7); NEUTROPHILS % (AUTO) 61.3 % (40.0-70.0)
[2019-11-24 07:24] LABS: WHITE BLOOD COUNT (AUTO) 1.9 K/uL (4.8-10.8)
[2019-11-24 07:40] LABS: ALANINE AMINOTRANSFERASE 9 U/L (12-78); ALBUMIN 1.9 g/dL (3.4-4.8); ANION GAP 6 (5-15); ASPARTATE AMINOTRANSFERASE 43 U/L (10-37); CALCIUM 7.6 mg/dL (8.4-11.0); CHLORIDE 106 mmol/L (98-107); CREATININE 0.69 mg/dL (0.55-1.30); GLUCOSE 99 mg/dL (70-99); POTASSIUM 3.5 mmol/L (3.5-5.1); SODIUM SERUM 141 mmol/L (136-145); TOTAL BILIRUBIN 0.4 mg/dL (0.0-1.0); UREA NITROGEN, BLOOD 14 mg/dL (8-21)
[2019-11-24 07:49] LABS: PLATELET COUNT (AUTO) 93 K/uL (130-430)
[2019-11-24 09:30] VITALS: BP_SYST 121
[2019-11-24] MEDS: CILOSTAZOL 50 MG TABLET (PLETAL) PO SCH ×2 (09:38→21:44)
[2019-11-24] MEDS: MEMANTINE HCL 5 MG TABLET PO SCH (09:38)
[2019-11-24] MEDS: FAMOTIDINE 20 MG TABLET PO SCH (09:38)
[2019-11-24] MEDS: MULTIVITAMINS TAB 1 TABLET PO SCH (09:38)
[2019-11-24] MEDS: OSELTAMIVIR PHOSPHATE 75 MG CAPSULE PO SCH ×2 (09:38→21:43)
[2019-11-24] MEDS: DIVALPROEX SODIUM 250 MG TABLET(DEPAKOTE) PO SCH ×2 (09:38→21:44)
[2019-11-24] MEDS: CARBIDOPA/LEVODOPA 25/250 MG TABLET PO SCH ×4 (09:38→21:43)
[2019-11-24] MEDS: MUPIROCIN 2% TOPICAL OINTMENT 22 GM NS SCH ×2 (09:38→21:49)
[2019-11-24] MEDS: LACTOBACILLUS RHAMNOSUS GG 1 CAP CAPSULE PO SCH ×2 (09:39→21:43)
[2019-11-24] MEDS: tiZANidine HCL 4 MG TABLET PO SCH ×3 (09:39→21:44)
[2019-11-24] MEDS: DOCUSATE SODIUM 100 MG CAPSULE PO SCH ×2 (09:39→21:43)
[2019-11-24] MEDS: PRAMIPEXOLE DI-HCL 0.25 MG TABLET PO SCH ×3 (09:39→21:44)
[2019-11-24] MEDS: POTASSIUM CHLORIDE 20 MEQ TAB.PRT.SR PO SCH ×2 (09:40→21:44)
[2019-11-24] MEDS: ASCORBIC ACID 500 MG TABLET PO SCH (09:40)
[2019-11-24] MEDS: GABAPENTIN 300 MG CAPSULE PO SCH ×3 (09:40→21:44)
[2019-11-24 13:19] VITALS: BP_SYST 137
[2019-11-24] MEDS: LEVOFLOXACIN 500 MG/D5W 100 ML IV SCH (16:46)
[2019-11-24] MEDS: D5LR 1,000 ML IV SCH (16:49)
[2019-11-24] MEDS: QUEtiapine FUMARATE 25 MG TABLET PO SCH (18:00)
[2019-11-24 18:03] VITALS: BP_SYST 150
[2019-11-24 20:00] VITALS: BP_SYST 124
[2019-11-25] VITALS: BP_SYST 130
[2019-11-25 06:36] LABS: BASOPHILS % (AUTO) 0.5 % (0.0-2.0); EOSINOPHILS % (AUTO) 1.9 % (0.0-4.0); HEMATOCRIT 34.9 % (36-54); HEMOGLOBIN 11.6 g/dL (14.0-18.0); LYMPHOCYTES # (AUTO) 0.7 K/uL (1.0-5.5); LYMPHOCYTES % (AUTO) 35.4 % (20.5-51.5); MEAN CORPUSCULAR HEMOGLOBIN 30 pg (27-31); MEAN CORPUSCULAR HGB CONC 33 % (32-36); MEAN CORPUSCULAR VOLUME 89 fL (79.0-98.0); MONOCYTES # (AUTO) 0.2 K/uL (0.0-1.0); MONOCYTES % (AUTO) 11.2 % (1.7-9.3); PLATELET COUNT (AUTO) 109 K/uL (130-430); RED BLOOD CELL COUNT(AUTO) 3.93 MIL/uL (4.2-6.2); RED CELL DISTRIBUTION WIDTH 15.9 % (9.0-15.0)
[2019-11-25 06:50] LABS: ANION GAP 3 (5-15); CALCIUM 7.4 mg/dL (8.4-11.0); CHLORIDE 106 mmol/L (98-107); CREATININE 0.55 mg/dL (0.55-1.30); GLUCOSE 78 mg/dL (70-99); POTASSIUM 3.5 mmol/L (3.5-5.1); SODIUM SERUM 141 mmol/L (136-145); UREA NITROGEN, BLOOD 10 mg/dL (8-21)
[2019-11-25] MEDS: IPRATROPIUM/ALBUTEROL SULFATE 3 ML AMPUL.NEB (DUONEB) INH SCH ×4 (07:07→18:00)
[2019-11-25 07:10] LABS: WHITE BLOOD COUNT (AUTO) 1.9 K/uL (4.8-10.8)
[2019-11-25 07:50] VITALS: BP_SYST 148
[2019-11-25] MEDS: MEMANTINE HCL 5 MG TABLET PO SCH (10:07)
[2019-11-25] MEDS: MULTIVITAMINS TAB 1 TABLET PO SCH (10:07)
[2019-11-25] MEDS: MUPIROCIN 2% TOPICAL OINTMENT 22 GM NS SCH ×2 (10:07→22:14)
[2019-11-25] MEDS: DIVALPROEX SODIUM 250 MG TABLET(DEPAKOTE) PO SCH ×2 (10:07→22:14)
[2019-11-25] MEDS: CARBIDOPA/LEVODOPA 25/250 MG TABLET PO SCH ×4 (10:08→22:15)
[2019-11-25] MEDS: PRAMIPEXOLE DI-HCL 0.25 MG TABLET PO SCH ×3 (10:08→22:14)
[2019-11-25] MEDS: POTASSIUM CHLORIDE 20 MEQ TAB.PRT.SR PO SCH ×2 (10:08→22:14)
[2019-11-25] MEDS: tiZANidine HCL 4 MG TABLET PO SCH ×3 (10:08→22:14)
[2019-11-25] MEDS: CILOSTAZOL 50 MG TABLET (PLETAL) PO SCH ×2 (10:08→22:14)
[2019-11-25] MEDS: LACTOBACILLUS RHAMNOSUS GG 1 CAP CAPSULE PO SCH ×2 (10:08→22:15)
[2019-11-25] MEDS: ASCORBIC ACID 500 MG TABLET PO SCH (10:08)
[2019-11-25] MEDS: DOCUSATE SODIUM 100 MG CAPSULE PO SCH ×2 (10:08→22:15)
[2019-11-25] MEDS: OSELTAMIVIR PHOSPHATE 75 MG CAPSULE PO SCH ×2 (10:09→22:15)
[2019-11-25] MEDS: GABAPENTIN 300 MG CAPSULE PO SCH ×3 (10:09→22:15)
[2019-11-25 13:02] VITALS: BP_SYST 109
[2019-11-25 15:39] LABS: TOTAL IRON BIND. CAPACITY 149 ug/dL (250-450)
[2019-11-25] MEDS: D5LR 1,000 ML IV SCH (15:52)
[2019-11-25 16:06] VITALS: BP_SYST 115
[2019-11-25] MEDS: QUEtiapine FUMARATE 25 MG TABLET PO SCH (18:01)
[2019-11-25] MEDS: LEVOFLOXACIN 500 MG/D5W 100 ML IV SCH (18:01)
[2019-11-25] MEDS: VANCOMYCIN HCL 1 GM/NS PREMIX 250 ML IV SCH (18:02)
[2019-11-25 20:00] VITALS: BP_SYST 112
[2019-11-26] VITALS: BP_SYST 109
[2019-11-26] MEDS: VANCOMYCIN HCL 1 GM/NS PREMIX 250 ML IV SCH ×2 (05:32→17:31)
[2019-11-26 08:00] VITALS: BP_SYST 144
[2019-11-26 08:06] LABS: FOLATE (FOLIC ACID) 6.3 ng/mL (>3.0)
[2019-11-26 08:55] LABS: BASOPHILS % (AUTO) 0.3 % (0.0-2.0); EOSINOPHILS # (AUTO) 0.1 K/uL (0.0-0.4); EOSINOPHILS % (AUTO) 3.4 % (0.0-4.0); HEMATOCRIT 34.6 % (36-54); HEMOGLOBIN 11.6 g/dL (14.0-18.0); LYMPHOCYTES # (AUTO) 0.6 K/uL (1.0-5.5); LYMPHOCYTES % (AUTO) 23.6 % (20.5-51.5); MEAN CORPUSCULAR HEMOGLOBIN 30 pg (27-31); MEAN CORPUSCULAR HGB CONC 34 % (32-36); MEAN CORPUSCULAR VOLUME 88 fL (79.0-98.0); MONOCYTES # (AUTO) 0.2 K/uL (0.0-1.0); MONOCYTES % (AUTO) 9.3 % (1.7-9.3); NEUTROPHILS # (AUTO) 1.7 K/uL (1.8-7.7); NEUTROPHILS % (AUTO) 63.4 % (40.0-70.0); PLATELET COUNT (AUTO) 114 K/uL (130-430); RED BLOOD CELL COUNT(AUTO) 3.92 MIL/uL (4.2-6.2); RED CELL DISTRIBUTION WIDTH 15.4 % (9.0-15.0)
[2019-11-26 09:14] LABS: ANION GAP 7 (5-15); CHLORIDE 106 mmol/L (98-107); GLUCOSE 88 mg/dL (70-99); POTASSIUM 3.7 mmol/L (3.5-5.1); SODIUM SERUM 141 mmol/L (136-145); UREA NITROGEN, BLOOD 10 mg/dL (8-21)
[2019-11-26 09:18] LABS: WHITE BLOOD COUNT (AUTO) 2.6 K/uL (4.8-10.8)
[2019-11-26] MEDS: tiZANidine HCL 4 MG TABLET PO SCH ×3 (09:40→21:51)
[2019-11-26] MEDS: GABAPENTIN 300 MG CAPSULE PO SCH ×3 (09:41→21:51)
[2019-11-26] MEDS: POTASSIUM CHLORIDE 20 MEQ TAB.PRT.SR PO SCH ×2 (09:41→21:51)
[2019-11-26] MEDS: ASCORBIC ACID 500 MG TABLET PO SCH (09:41)
[2019-11-26] MEDS: DOCUSATE SODIUM 100 MG CAPSULE PO SCH ×2 (09:41→21:50)
[2019-11-26] MEDS: CARBIDOPA/LEVODOPA 25/250 MG TABLET PO SCH ×4 (09:41→21:50)
[2019-11-26] MEDS: PRAMIPEXOLE DI-HCL 0.25 MG TABLET PO SCH ×3 (09:41→21:51)
[2019-11-26] MEDS: MEMANTINE HCL 5 MG TABLET PO SCH (09:42)
[2019-11-26] MEDS: LACTOBACILLUS RHAMNOSUS GG 1 CAP CAPSULE PO SCH ×2 (09:42→21:51)
[2019-11-26] MEDS: CILOSTAZOL 50 MG TABLET (PLETAL) PO SCH ×2 (09:42→21:50)
[2019-11-26] MEDS: OSELTAMIVIR PHOSPHATE 75 MG CAPSULE PO SCH (09:44)
[2019-11-26] MEDS: DIVALPROEX SODIUM 250 MG TABLET(DEPAKOTE) PO SCH ×2 (09:44→21:50)
[2019-11-26] MEDS: MULTIVITAMINS TAB 1 TABLET PO SCH (09:44)
[2019-11-26] MEDS: MUPIROCIN 2% TOPICAL OINTMENT 22 GM NS SCH ×2 (09:47→21:52)
[2019-11-26 12:35] VITALS: BP_SYST 144
[2019-11-26] MEDS: IPRATROPIUM/ALBUTEROL SULFATE 3 ML AMPUL.NEB (DUONEB) INH SCH ×4 (13:15→19:20)
[2019-11-26] MEDS: D5LR 1,000 ML IV SCH (15:31)
[2019-11-26 16:45] VITALS: BP_SYST 140
[2019-11-26] MEDS: QUEtiapine FUMARATE 25 MG TABLET PO SCH (17:30)
[2019-11-26] MEDS: LEVOFLOXACIN 500 MG/D5W 100 ML IV SCH (17:31)
[2019-11-26 20:00] VITALS: BP_SYST 111
[2019-11-27 00:15] VITALS: BP_SYST 145
[2019-11-27] MEDS: VANCOMYCIN HCL 1 GM/NS PREMIX 250 ML IV SCH (05:45)
[2019-11-27 06:35] LABS: BASOPHILS % (AUTO) 0.4 % (0.0-2.0); EOSINOPHILS # (AUTO) 0.2 K/uL (0.0-0.4); EOSINOPHILS % (AUTO) 6.6 % (0.0-4.0); HEMATOCRIT 36.6 % (36-54); HEMOGLOBIN 12.2 g/dL (14.0-18.0); LYMPHOCYTES # (AUTO) 0.7 K/uL (1.0-5.5); LYMPHOCYTES % (AUTO) 24.9 % (20.5-51.5); MEAN CORPUSCULAR HEMOGLOBIN 29 pg (27-31); MEAN CORPUSCULAR HGB CONC 33 % (32-36); MEAN CORPUSCULAR VOLUME 89 fL (79.0-98.0); MONOCYTES # (AUTO) 0.3 K/uL (0.0-1.0); MONOCYTES % (AUTO) 10.6 % (1.7-9.3); NEUTROPHILS # (AUTO) 1.5 K/uL (1.8-7.7); NEUTROPHILS % (AUTO) 57.5 % (40.0-70.0); PLATELET COUNT (AUTO) 139 K/uL (130-430); RED BLOOD CELL COUNT(AUTO) 4.13 MIL/uL (4.2-6.2); RED CELL DISTRIBUTION WIDTH 15.9 % (9.0-15.0); WHITE BLOOD COUNT (AUTO) 2.6 K/uL (4.8-10.8)
[2019-11-27 08:00] VITALS: BP_SYST 126
[2019-11-27] MEDS: IPRATROPIUM/ALBUTEROL SULFATE 3 ML AMPUL.NEB (DUONEB) INH SCH ×3 (08:24→13:30)
[2019-11-27] MEDS: MUPIROCIN 2% TOPICAL OINTMENT 22 GM NS SCH (09:10)
[2019-11-27] MEDS: GABAPENTIN 300 MG CAPSULE PO SCH (09:10)
[2019-11-27] MEDS: ASCORBIC ACID 500 MG TABLET PO SCH (09:10)
[2019-11-27] MEDS: MEMANTINE HCL 5 MG TABLET PO SCH (09:10)
[2019-11-27] MEDS: POTASSIUM CHLORIDE 20 MEQ TAB.PRT.SR PO SCH (09:10)
[2019-11-27] MEDS: CILOSTAZOL 50 MG TABLET (PLETAL) PO SCH (09:10)
[2019-11-27] MEDS: LACTOBACILLUS RHAMNOSUS GG 1 CAP CAPSULE PO SCH (09:10)
[2019-11-27] MEDS: PRAMIPEXOLE DI-HCL 0.25 MG TABLET PO SCH (09:10)
[2019-11-27] MEDS: DIVALPROEX SODIUM 250 MG TABLET(DEPAKOTE) PO SCH (09:10)
[2019-11-27] MEDS: MULTIVITAMINS TAB 1 TABLET PO SCH (09:10)
[2019-11-27] MEDS: DOCUSATE SODIUM 100 MG CAPSULE PO SCH (09:10)
[2019-11-27] MEDS: tiZANidine HCL 4 MG TABLET PO SCH (09:14)
[2019-11-27] MEDS: CARBIDOPA/LEVODOPA 25/250 MG TABLET PO SCH ×2 (09:14→13:27)
[2019-11-27 12:16] VITALS: BP_SYST 103
[2019-11-27 13:45] VITALS: BP_SYST 103
== END 2019-11-27 15:20 | DRG 871 ==
LOC: SED 14:42 → STU 17:37
PROVIDERS: ADMIT Preventive Medicine Preventive Medicine/Occupational Environmental Medicine; ATTEND Internal Medicine
DX: A41.9 Sepsis, unspecified organism (principal); J12.9 Viral pneumonia, unspecified; E43 Unspecified severe protein-calorie malnutrition; D61.818 Other pancytopenia; Z68.1 Body mass index [BMI] 19.9 or less, adult; F02.80 Dementia in other diseases classified elsewhere, unspecified severity, without behavioral disturbance, psychotic disturbance, mood disturbance, and anxiety; G20 Parkinson's disease; G89.4 Chronic pain syndrome; I10 Essential (primary) hypertension; M19.90 Unspecified osteoarthritis, unspecified site; E87.6 Hypokalemia; R13.10 Dysphagia, unspecified; R27.0 Ataxia, unspecified; E86.0 Dehydration; Z79.899 Other long term (current) drug therapy
CPT/HCPCS: 36415; 71045; 76700-TC; 80048; 80053; 80202-TC; 81003; 82272; 82607; 82728; 82746; 83540-TC; 83550-TC; 83605; 83735-TC; 85007; 85025; 85027; 86710; 87040-TC; 87081; 93005; 94640; 94760; 96365; 96367; 99285; G0378; G9035; J0696; J1956; J3370; J3475; J3480; J7050; J7120; J7620

== ENCOUNTER 2020-09-18 03:43 | Inpatient (IN) | payer OTHER, MEDICAID, SELFPAY ==
[~2020-09-18] VITALS: Ht 177.8 cm; Wt 65.3 kg
[~2020-09-18 03:43] MED LIST changes: +ACET325C6 PO; -ACET325T53 PO; +CILO50TA PO; +DIVA250T PO; +DOCU-144 PO; -DOXY100C PO; +MEMA5TAB PO; -MULT PO; +MULT-1117 PO; +NITSL SL; -PIMA17TA PO; -POTA20TA83 PO; -PRO20 PO; -PRO40 PO; -VITD2000 PO
--- NOTE | 2020-09-18 03:50 | NUR ---
Patient to ER bed 8 to gown for evaluation. Side rails up. Report RECEIVED FROM CELIA DURAN.
--- NOTE | 2020-09-18 03:50 | NUR ---
Note undone in EDM - 09/18/20 at 0613 by PIO # 18 gauge angiocath placed to LAC PLACED BY FIRE PRIOR TO ARRIVAL. Flushed with 10 cc of normal saline. No evidence of infiltration noted. Patient tolerated well.
--- NOTE | 2020-09-18 03:50 | NUR ---
# 18 gauge angiocath placed to RIGHT AC PLACED BY FIRE PRIOR TO ARRIVAL. Flushed with 10 cc of normal saline. No evidence of infiltration noted. Patient tolerated well.
--- NOTE | 2020-09-18 04:00 | NUR ---
PT BIB ALS FROM [facility] A&O X1 C/O OF SHORTNESS OF BREATH AND O2 SATS AT 84-86% ON 5L OF OXYGEN. PT ARRIVED ON 6L O2 WITH 02 SAT 94%. PT TACHYCARDIC, TACHYPNEIC. PT DENIES PAIN. PT WORKING TO BREATHE, USING ACCESORY MUSCLES. PT NOT DIAPHORETIC. WILL CONTINUE TO MONITOR.
[2020-09-18 04:04] VITALS: BP_SYST 117
--- NOTE | 2020-09-18 04:04 | NUR ---
RADIOLOGY AT BEDSIDE FOR CHEST XRAY.
--- NOTE | 2020-09-18 04:09 | NUR ---
Note isaías in ED - 09/18/20 at 0410 by SDEDCJM Placed in room 08 . Placed on monitoring coordinator, blood pressure machine and pulse oximeter. To gown for exam. Side rails up. Report given to CELIA DEL ANGEL
--- NOTE | 2020-09-18 04:11 | NUR ---
RESPIRATORY AT BEDSIDE FOR ABG. PT TAKEN OFF O2 PRIOR TO DRAW.
--- NOTE | 2020-09-18 04:19 | NUR ---
Medication reconciliation completed with information provided by NORBERTO BROCK. Any prior medication reconciliation on file was reviewed and corrected.
--- NOTE | 2020-09-18 04:20 | NUR ---
PATIENT PLACED ON 4L NC PER MD ORDER.
--- NOTE | 2020-09-18 04:29 | NUR ---
LAB AT BEDSIDE DRAWING BLOOD.
[2020-09-18 04:46] LABS: BASOPHILS % (AUTO) 0.3 % (0.0-2.0); EOSINOPHILS # (AUTO) 0.1 K/uL (0.0-0.4); EOSINOPHILS % (AUTO) 1.7 % (0.0-4.0); HEMATOCRIT 38.9 % (36-54); LYMPHOCYTES # (AUTO) 0.4 K/uL (1.0-5.5); LYMPHOCYTES % (AUTO) 4.8 % (20.5-51.5); MEAN CORPUSCULAR HEMOGLOBIN 30 pg (27-31); MEAN CORPUSCULAR HGB CONC 33 % (32-36); MEAN CORPUSCULAR VOLUME 90 fL (79.0-98.0); MONOCYTES # (AUTO) 0.3 K/uL (0.0-1.0); MONOCYTES % (AUTO) 3.6 % (1.7-9.3); NEUTROPHILS # (AUTO) 6.8 K/uL (1.8-7.7); NEUTROPHILS % (AUTO) 89.6 % (40.0-70.0); PLATELET COUNT (AUTO) 183 K/uL (130-430); RED BLOOD CELL COUNT(AUTO) 4.34 MIL/uL (4.2-6.2); RED CELL DISTRIBUTION WIDTH 14.8 % (9.0-15.0); WHITE BLOOD COUNT (AUTO) 7.6 K/uL (4.8-10.8)
--- NOTE | 2020-09-18 04:50 | NUR ---
mrsa and covid swabs collected and sent to lab.
--- NOTE | 2020-09-18 04:50 | NUR ---
# 16 FR In and Out catheter with use of sterile technique. Immediate return of 100 ml dark yellow urine noted. Urine sample collected and sent to lab. Pt tolerated procedure well.
--- NOTE | 2020-09-18 04:52 | NUR ---
Blood cultures drawn, prior to administration of antibiotic.
[2020-09-18] MEDS ORDERED: VANCOMYCIN HCL 1000 MG/VIAL IV ONE (04:54)
[2020-09-18] MEDS ORDERED: AZITHROMYCIN 500 MG/VIAL (ZITHROMAX) IV ONE (04:55)
[2020-09-18] MEDS ORDERED: PIPERACILLIN/TAZOBACTAM 3.375 GM/VIAL (ZOSYN) IV ONE (04:55)
[2020-09-18 05:00] LABS: ANION GAP 1 (5-15); CALCIUM 8.4 mg/dL (8.4-11.0); CHLORIDE 102 mmol/L (98-107); CREATININE 0.92 mg/dL (0.55-1.30); GLUCOSE 92 mg/dL (70-99); POTASSIUM 4.9 mmol/L (3.5-5.1); SODIUM SERUM 137 mmol/L (136-145); UREA NITROGEN, BLOOD 23 mg/dL (8-21)
[2020-09-18] MEDS ORDERED: NS 500 ML IV ONE ×2 (05:00→05:30)
[2020-09-18] MEDS ORDERED: AZITHROMYCIN 500 MG in NS 250 ML IV ONE (05:00)
[2020-09-18] MEDS ORDERED: PIPERACILLIN/TAZO 3.375 GM in NS 50 ML IV ONE (05:00)
[2020-09-18] MEDS ORDERED: VANCOMYCIN HCL 1,000 MG in NS 250 ML IV ONE (05:00)
--- NOTE | 2020-09-18 05:00 | NUR ---
temperature taken via axillary - 100.5. aware.
[2020-09-18 05:02] LABS: C-REACTIVE PROTEIN QUANT 6.4 mg/dL (0-0.5)
--- NOTE | 2020-09-18 05:05 | NUR ---
# 20 gauge angiocath placed to LEFT forearm. Use of asceptic technique. Opsite placed over site. Blood return noted. Flushed with 10 cc of normal saline. No evidence of infiltration noted. Patient tolerated well.
--- NOTE | 2020-09-18 05:05 | NUR ---
Note undone in EDM - 09/18/20 at 0612 by POI # 20 gauge angiocath placed to right forearm. Use of asceptic technique. Opsite placed over site. Blood return noted. Flushed with 10 cc of normal saline. No evidence of infiltration noted. Patient tolerated well.
[2020-09-18 05:07] LABS: ALANINE AMINOTRANSFERASE 13 U/L (12-78); ALBUMIN 3.1 g/dL (3.4-4.8); ASPARTATE AMINOTRANSFERASE 13 U/L (10-37); INR 1.2 (0.80-1.20); LACTATE DEHYDROGENASE 101 U/L (85-227); PROTHROMBIN TIME 11.8 SECS (9.5-12.5); TOTAL BILIRUBIN 0.9 mg/dL (0.0-1.0)
[2020-09-18 05:18] LABS: BILIRUBIN,URINE NEGATIVE (NEGATIVE); CLARITY/URINE CLOUDY (CLEAR); COLOR,URINE YELLOW (YELLOW); GLUCOSE,URINE NEGATIVE (NEGATIVE); KETONES,URINE NEGATIVE (NEGATIVE); LEUKOCYTE ESTERASE ,URINE TRACE (NEGATIVE); NITRITE, URINE NEGATIVE (NEGATIVE); PROTEIN URINE NEGATIVE (NEGATIVE); UROBILINOGEN,URINE 0.2 (0.2-1.0)
[2020-09-18] MEDS ORDERED: ACETAMINOPHEN 650 MG SUPP.RECT RC ONE ×2 (05:23→05:30)
[2020-09-18 05:24] LABS: BLOOD, URINE TRACE (NEGATIVE)
[2020-09-18 05:25] LABS: BACTERIA,URINE MANY /HPF (None Seen); WBC,URINE 20-50 /HPF (0-3)
--- NOTE | 2020-09-18 05:27 | NUR ---
respiratory at bedside for breathing treatment.
[2020-09-18] MEDS ORDERED: ALBUTEROL SULFATE 0.083% 2.5 MG/3 ML VIAL.NEB INH ONE (05:30)
--- NOTE | 2020-09-18 05:30 | NUR ---
temperature taken rectally - 100.6. aware.
--- NOTE | 2020-09-18 05:59 | NUR ---
RECEIVED ADMIT ORDERS FROM DR. CONNER.
[2020-09-18] MEDS ORDERED: DILTIAZEM HCL 25 MG/5 ML VIAL IVP ONE (06:00)
[2020-09-18] MEDS ORDERED: NACL 0.9% 1,000 ML IV ONE (06:00)
[2020-09-18] MEDS ORDERED: ACETAMINOPHEN 650 MG SUPP.RECT RC PRN (06:00)
--- NOTE | 2020-09-18 06:04 | NUR ---
Patient's code status is FULL CODE WITH SELECTIVE TREATMENT paperwork completed and placed in chart.
--- NOTE | 2020-09-18 06:13 | NUR ---
Patient will be admitted to care of [facility]. Admitted to TELE unit. Will go to room 133. Belongings list completed. Complete and up to date summary report printed. SBAR report to be given at bedside with opportunity for questions.
--- NOTE | 2020-09-18 06:35 | NUR ---
PCR COVID SWAB COLLECTED AND SENT TO LAB.
--- NOTE | 2020-09-18 06:43 | NUR ---
Patient will be admitted to care of DR CONNER. Admitted to TELEMETRY unit. Will go to room 133 B. Belongings list completed. Complete and up to date summary report printed. SBAR report to be given at bedside with opportunity for questions.
--- NOTE | 2020-09-18 06:44 | NUR ---
Transfer to TELEMETRY via ACLS protocol. Licensed nurse present. IV present no signs or symptoms of infiltration.
--- NOTE | 2020-09-18 06:53 | NUR ---
ADMISSION NOTE Received patient from ER via paul, received report from CELIA lopez. Patient admitted with diagnosis of sepsis, pna. Patient oriented to hospital routine, call light, toileting and safety-patient verbalized understanding.
[2020-09-18 07:21] VITALS: BP_SYST 138
[2020-09-18] MEDS: NACL 0.9% 1,000 ML IV SCH ×3 (07:21→23:46)
--- NOTE | 2020-09-18 08:00 | NUR ---
PATIENT IS RESTING, A/OX0; IV ON THE LEFT FA AND RIGHT AC, #20, SITE INTACT AND PATENT. ON 4L NC. A-FIB ON MONITOR. CALL LIGHT IN PLACE, BED LOCKED AT THE LOWEST POSITION, WILL CONTINUE TO MONITOR.
[2020-09-18] MEDS ORDERED: DEXAMETHASONE SOD PHOSPHATE 4 MG/ML VIAL IVP ONE (09:30)
[2020-09-18] MEDS ORDERED: IPRATROPIUM/ALBUTEROL SULFATE 3 ML AMPUL.NEB (DUONEB) INH SCH (09:30)
[2020-09-18] MEDS ORDERED: *PPN PER PHARMACY XX PRN (09:45)
[2020-09-18] MEDS ORDERED: INSULIN REGULAR, HUMAN 100 UNITS/ML, 10 ML VIAL (humuLIN R) SUBCUT PRN (09:45)
[2020-09-18] MEDS ORDERED: DEXTROSE 50% JECT 50 ML DISP.SYRIN IVP PRN (09:45)
--- NOTE | 2020-09-18 09:56 | NUR ---
CONSULTATION PAGED/CALLED Reason for Consultation: [] RESP FAIL Person Who was Notified: [] PAGED PULMO FLOOR WORKER TRANSFER BAY DR COOPER DIRECTLY Consulting Physician: [] DR COOPER Suspender Cutter Specialty: [] PULMO Ordering Physician: [] DR CONNER
--- NOTE | 2020-09-18 09:57 | NUR ---
CONSULTATION PAGED/CALLED Reason for Consultation: [] AMI Person Who was Notified: [] DR KRUSE Consulting Physician: [] DR KRUSE Ground Crew Linesman Specialty: [] CARDIOLOGY Ordering Physician: [] DR CONNER
[2020-09-18] MEDS ORDERED: IPRATROPIUM/ALBUTEROL SULFATE 3 ML AMPUL.NEB (DUONEB) INH PRN (10:15)
[2020-09-18] MEDS ORDERED: methylPREDNISolone SOD SUCC/PF 62.5 MG/ML VIAL IVP ONE (10:15)
[2020-09-18] MEDS ORDERED: NITROGLYCERIN 0.4 MG TAB.SUBL SL PRN (10:15)
[2020-09-18] MEDS ORDERED: IPRATROPIUM/ALBUTEROL SULFATE 3 ML AMPUL.NEB (DUONEB) INH ONE (10:30)
[2020-09-18] MEDS ORDERED: DIVALPROEX SODIUM 250 MG TAB.SR.24H (DEPAKOTE ER) PO ONE (11:00)
[2020-09-18] MEDS ORDERED: PRAMIPEXOLE DI-HCL 0.25 MG TABLET PO ONE (11:00)
[2020-09-18] MEDS ORDERED: PANTOPRAZOLE SODIUM 40 MG/VIAL (PROTONIX) IVP ONE (11:00)
[2020-09-18] MEDS ORDERED: MEMANTINE HCL 5 MG TABLET PO ONE (11:00)
[2020-09-18] MEDS ORDERED: CILOSTAZOL 50 MG TABLET (PLETAL) PO ONE (11:00)
[2020-09-18] MEDS ORDERED: tiZANidine HCL 4 MG TABLET PO ONE (11:00)
[2020-09-18] MEDS ORDERED: GABAPENTIN 300 MG CAPSULE PO ONE (11:00)
[2020-09-18] MEDS ORDERED: ASCORBIC ACID 500 MG TABLET PO ONE (11:00)
[2020-09-18] MEDS ORDERED: DOCUSATE SODIUM 100 MG CAPSULE PO ONE (11:00)
[2020-09-18] MEDS ORDERED: MULTIVITAMINS TAB 1 TABLET PO ONE (11:00)
--- NOTE | 2020-09-18 11:11 | NUR ---
Nutrition Update Bryce Scale 13 noted. Pt admitted for sepsis, pneumonia. Diet: Two Neal HN at 30 ml/hr, Prosource TID, Free Water Flush: 50 ML Q4H via NGT BMI: 20.9 kg/m2 RD to follow per nutrition care standards.
[2020-09-18] MEDS: PIPERACILLIN/TAZO 3.375/DEX-IS 50 ML IV SCH ×3 (11:51→23:00)
[2020-09-18 12:00] VITALS: BP_SYST 126
[2020-09-18] MEDS: D5W IV SCH (12:27)
[2020-09-18] MEDS: AMIODARONE HCL IV SCH (12:27)
--- NOTE | 2020-09-18 12:36 | NUR ---
PATIENT REMOVES IV SITES AND ATTEMPTS TO REMOVE NG TUBE AND OXYGEN SUPPLY.. NEW IV SITE OF #18 IS ESTABLISHED AT LEFT UPPER ARM. RESTRAINTS ORDER IS OBTAINED FROM DR. CONNER.
[2020-09-18] MEDS: IPRATROPIUM/ALBUTEROL SULFATE 3 ML AMPUL.NEB (DUONEB) INH SCH ×2 (13:00→20:03)
--- NOTE | 2020-09-18 13:05 | NUR ---
Nutrition Note New TF order for Two Neal HN formula, however, this formula is not available on site at this time. Closest substitution is Jevity 1.5. RD modified TF order to Jevity 1.5 at 30 ml/hr, Prosource TID, Free Water Flus: 50 ML Q4H via NGT. Nutrition Assessment will be completed on 09/20.
[2020-09-18] MEDS: CARBIDOPA/LEVODOPA 25/250 MG TABLET PO SCH ×3 (13:21→20:19)
[2020-09-18 13:23] LABS: PHOSPHORUS 2.9 mg/dL (2.7-4.5)
[2020-09-18] MEDS: GABAPENTIN 300 MG CAPSULE PO SCH ×2 (15:53→20:18)
[2020-09-18] MEDS: PRAMIPEXOLE DI-HCL 0.25 MG TABLET PO SCH ×2 (15:53→20:18)
[2020-09-18] MEDS: tiZANidine HCL 4 MG TABLET PO SCH ×2 (15:53→20:19)
[2020-09-18 16:00] VITALS: BP_SYST 155
--- NOTE | 2020-09-18 16:00 | NUR ---
Patient BS at 102. No coverage needed.
--- NOTE | 2020-09-18 18:00 | NUR ---
Patient is resting, on 5L, O2 sat at 95%. Tube feeding running at 30ml/hr.
--- NOTE | 2020-09-18 19:40 | NUR ---
ROUNDS PATIENT IN BED, CONFUSED, ON BILATERAL SOFT WRIST RESTRAINTS FOR SAFETY AND TRYING TO PULL OUT NG TUBE AND IV LINES. ON 7L OXYMIZER, SATING 94%-95%. ASSESSMENT DONE AND DOCUMENTED. SEE FLOWSHEET. NEEDS ATTENDED TO. SAFETY MEASURES IN PLACED. WILL CONTINUE TO MONITOR.
[2020-09-18 20:00] VITALS: BP_SYST 154
[2020-09-18] MEDS: DIVALPROEX SODIUM 250 MG TAB.SR.24H (DEPAKOTE ER) PO SCH (20:17)
[2020-09-18] MEDS: DOCUSATE SODIUM 100 MG CAPSULE PO SCH (20:17)
[2020-09-18] MEDS: CILOSTAZOL 50 MG TABLET (PLETAL) PO SCH (20:19)
--- NOTE | 2020-09-18 21:13 | NUR ---
MEDICATION DUE MEDICATIONS GIVEN ORDERED PER NG TUBE, PLACEMENT VERIFIED FIRST BY AUSCULTATION. NEEDS ATTENDED TO. WILL CONTINUE TO MONITOR.
[2020-09-19] VITALS (17 sets, daily range): BP systolic 94–163
--- NOTE | 2020-09-19 00:12 | NUR ---
PATIENT RESTING: Patient resting quietly. No acute distress noted. Vital signs within normal range.
[2020-09-19] MEDS: IPRATROPIUM/ALBUTEROL SULFATE 3 ML AMPUL.NEB (DUONEB) INH SCH ×4 (01:30→19:58)
[2020-09-19] MEDS: PIPERACILLIN/TAZO 3.375/DEX-IS 50 ML IV SCH ×4 (05:00→23:44)
--- NOTE | 2020-09-19 05:31 | NUR ---
SWALLOW EVAL I CALLED SHREE LEFT A MESSAGE AT HER ANSWERING MACHINE REGARDING SWALLOW EVALUATION
--- NOTE | 2020-09-19 06:57 | NUR ---
DR. CONNER PAGED AND TALKED TO DR. CONNER, PATIENT'S NG TUBE FOUND ALREADY OUT AND PATIENT DESATING TO 81-83%. SUCTION DONE BY R.T. AND PUT THE PATIENT TO NON REBREATHER MASK. PATIENT NOW SATING TO 88-90%. NEW ORDER GIVEN FOR STAT ABG, STAT CXR AND TRANSFER PATIENT TO ICU. WILL ENDORSE PATIENT TO INCOMING SHIFT NURSE.
[2020-09-19 07:04] LABS: BASOPHILS % (AUTO) 0.4 % (0.0-2.0); EOSINOPHILS % (AUTO) 0.4 % (0.0-4.0); HEMATOCRIT 35.4 % (36-54); HEMOGLOBIN 11.9 g/dL (14.0-18.0); LYMPHOCYTES # (AUTO) 0.5 K/uL (1.0-5.5); LYMPHOCYTES % (AUTO) 6.1 % (20.5-51.5); MEAN CORPUSCULAR HEMOGLOBIN 30 pg (27-31); MEAN CORPUSCULAR HGB CONC 34 % (32-36); MEAN CORPUSCULAR VOLUME 90 fL (79.0-98.0); MONOCYTES # (AUTO) 0.5 K/uL (0.0-1.0); MONOCYTES % (AUTO) 5.7 % (1.7-9.3); NEUTROPHILS # (AUTO) 7.1 K/uL (1.8-7.7); NEUTROPHILS % (AUTO) 87.4 % (40.0-70.0); PLATELET COUNT (AUTO) 169 K/uL (130-430); RED BLOOD CELL COUNT(AUTO) 3.94 MIL/uL (4.2-6.2); RED CELL DISTRIBUTION WIDTH 14.7 % (9.0-15.0); WHITE BLOOD COUNT (AUTO) 8.1 K/uL (4.8-10.8)
[2020-09-19] MEDS: AZITHROMYCIN 500 MG in NS 250 ML IV SCH (07:24)
[2020-09-19 07:25] LABS: ALANINE AMINOTRANSFERASE 9 U/L (12-78); ALBUMIN 2.4 g/dL (3.4-4.8); ANION GAP 7 (5-15); ASPARTATE AMINOTRANSFERASE 17 U/L (10-37); CALCIUM 8.1 mg/dL (8.4-11.0); CHLORIDE 97 mmol/L (98-107); CHOLESTEROL 133 mg/dL (<200); CREATININE 0.59 mg/dL (0.55-1.30); GLUCOSE 108 mg/dL (70-99); HDL CHOLESTEROL 60 mg/dL (>45); LDL CHOLESTEROL 54 mg/dL (<100); PHOSPHORUS 2.2 mg/dL (2.7-4.5); SODIUM SERUM 132 mmol/L (136-145); TOTAL BILIRUBIN 0.9 mg/dL (0.0-1.0); TRIGLYCERIDES 33 mg/dL (30-150); UREA NITROGEN, BLOOD 19 mg/dL (8-21)
--- NOTE | 2020-09-19 08:00 | NUR ---
Patient's pulse Ox at 85-88%. Dr. Randall is informed, and order is given.
[2020-09-19] MEDS: CILOSTAZOL 50 MG TABLET (PLETAL) PO SCH ×2 (08:41→21:00)
[2020-09-19] MEDS: DIVALPROEX SODIUM 250 MG TAB.SR.24H (DEPAKOTE ER) PO SCH ×2 (08:41→21:00)
[2020-09-19] MEDS: MEMANTINE HCL 5 MG TABLET PO SCH (08:41)
[2020-09-19] MEDS: GABAPENTIN 300 MG CAPSULE PO SCH ×3 (08:41→21:00)
[2020-09-19] MEDS: ASCORBIC ACID 500 MG TABLET PO SCH (08:41)
[2020-09-19] MEDS: PRAMIPEXOLE DI-HCL 0.25 MG TABLET PO SCH ×3 (08:41→21:00)
[2020-09-19] MEDS: DOCUSATE SODIUM 100 MG CAPSULE PO SCH ×2 (08:41→21:00)
[2020-09-19] MEDS: CARBIDOPA/LEVODOPA 25/250 MG TABLET PO SCH ×4 (08:41→21:00)
[2020-09-19] MEDS: MULTIVITAMINS TAB 1 TABLET PO SCH (08:41)
[2020-09-19] MEDS: tiZANidine HCL 4 MG TABLET PO SCH ×3 (08:42→21:00)
[2020-09-19] MEDS ORDERED: MORPHINE 4 MG/ML INJ. SYRINGE IVP PRN (08:45)
[2020-09-19] MEDS ORDERED: D5W IV SCH (09:00)
[2020-09-19] MEDS: PANTOPRAZOLE SODIUM 40 MG/VIAL (PROTONIX) IVP SCH (09:00)
[2020-09-19] MEDS ORDERED: AMIODARONE HCL IV SCH (09:00)
--- NOTE | 2020-09-19 09:00 | NUR ---
patient is transferred to ICU.
[2020-09-19 10:06] LABS: INR 1.2 (0.80-1.20); PROTHROMBIN TIME 12.1 SECS (9.5-12.5)
[2020-09-19] MEDS: NACL 0.9% 1,000 ML IV SCH (10:44)
[2020-09-19] MEDS ORDERED: INSULIN REGULAR, HUMAN 100 UNITS/ML, 10 ML VIAL (humuLIN R) SUBCUT PRN (10:45)
[2020-09-19] MEDS ORDERED: DEXTROSE 50% JECT 50 ML DISP.SYRIN IVP PRN (10:45)
[2020-09-19] MEDS ORDERED: *TPN PER PHARMACY XX PRN (10:45)
[2020-09-19] MEDS ORDERED: D5LR 500 ML IV ONE (11:00)
[2020-09-19] MEDS ORDERED: NA PHOS 30 MM in NS 250 ML IV ONE (11:00)
--- NOTE | 2020-09-19 11:35 | NUR ---
deep nasal pharyngeal suction is performed. Patient tolerates the procedure with no new events.
[2020-09-19] MEDS: D5W IV SCH (12:00)
[2020-09-19] MEDS: AMIODARONE HCL IV SCH (12:00)
[2020-09-19] MEDS: D5LR 1,000 ML IV SCH (12:41)
--- NOTE | 2020-09-19 13:28 | NUR ---
Patient's at the station. POC is explained.
--- NOTE | 2020-09-19 15:37 | NUR ---
PICC insertion completed. No adverse events noted. Chest xray is taken to confirm placement.
--- NOTE | 2020-09-19 18:00 | NUR ---
Patient is given a CHG bath. Turned and repositioned for comfort.
--- NOTE | 2020-09-19 19:40 | NUR ---
Opening note Received report and assumed care. Patient restless and confused. Follows simple commands. Requires perineal care and repositioning. Audible wet inspiratory process; suction provided by RT. LINDA picc in place and patent. will continue to monitor.
[2020-09-19] MEDS ORDERED: MAGNESIUM SULFATE IV SCH ×8 (21:00)
[2020-09-19] MEDS ORDERED: [UNRECOGNIZED DRUG - OTHER] IV SCH ×8 (21:00)
[2020-09-19] MEDS ORDERED: TPN PERIPHERAL IV SCH ×8 (21:00)
[2020-09-19] MEDS ORDERED: TRACE ELEMENTS IV SCH ×8 (21:00)
[2020-09-19] MEDS ORDERED: MVI IV SCH ×8 (21:00)
--- NOTE | 2020-09-19 21:05 | NUR ---
Dr Ji contacted to report ABG results on NRM 100%. Dr Ji stated "since pH is improving on NRM 100% and patient is hypoxic, we will continue to maintain patient on NRM 100%; and NO sedation".
[2020-09-19] MEDS ORDERED: DILTIAZEM HCL 25 MG/5 ML VIAL IVP ONE (21:30)
[2020-09-19] MEDS ORDERED: DEXAMETHASONE SOD PHOSPHATE 4 MG/ML VIAL IVP ONE (21:30)
[2020-09-19] MEDS: FAT EMULSIONS 250 ML IV SCH (21:40)
--- NOTE | 2020-09-19 22:00 | NUR ---
Berry catheter inserted 16 F using aseptic technique. obtained 100 cc dark yellow urine. patient tolerated well.
[2020-09-19] MEDS ORDERED: DILTIAZEM HCL 125 MG/25 ML VIAL IV ONE (22:01)
--- NOTE | 2020-09-19 22:30 | NUR ---
Patient started on cardizem drip as per MD orders and protocol. Initial rate 5 mg/h.
[2020-09-20] VITALS (24 sets, daily range): BP systolic 119–170
--- NOTE | 2020-09-20 00:30 | NUR ---
Assessment completed. Repositioned for comfort. patient continues to be restless.
[2020-09-20] MEDS: IPRATROPIUM/ALBUTEROL SULFATE 3 ML AMPUL.NEB (DUONEB) INH SCH ×2 (02:21→19:47)
[2020-09-20] MEDS: D5LR 1,000 ML IV SCH ×2 (02:31→16:54)
--- NOTE | 2020-09-20 05:27 | NUR ---
rt notes 0527 Dr. Ji ordered BIPAP for the pt, 07/26 rate 14, 100% FIO2. pt tolerating bipap as of now. protecta-gel barrier in placed. saturating 86%, 100 HR. will continue to monitor pt. rn prasanna aware. will endorse changes to AM RT.
[2020-09-20] MEDS: PIPERACILLIN/TAZO 3.375/DEX-IS 50 ML IV SCH ×4 (06:02→23:04)
[2020-09-20] MEDS: AZITHROMYCIN 500 MG in NS 250 ML IV SCH (06:02)
[2020-09-20 06:40] LABS: HEMATOCRIT 35.2 % (36-54); HEMOGLOBIN 11.7 g/dL (14.0-18.0); LYMPHOCYTES # (AUTO) 0.2 K/uL (1.0-5.5); LYMPHOCYTES % (AUTO) 3.2 % (20.5-51.5); MEAN CORPUSCULAR HEMOGLOBIN 30 pg (27-31); MEAN CORPUSCULAR HGB CONC 33 % (32-36); MEAN CORPUSCULAR VOLUME 90 fL (79.0-98.0); MONOCYTES # (AUTO) 0.3 K/uL (0.0-1.0); MONOCYTES % (AUTO) 4.1 % (1.7-9.3); NEUTROPHILS # (AUTO) 6.7 K/uL (1.8-7.7); NEUTROPHILS % (AUTO) 92.7 % (40.0-70.0); PLATELET COUNT (AUTO) 163 K/uL (130-430); RED CELL DISTRIBUTION WIDTH 15.3 % (9.0-15.0); WHITE BLOOD COUNT (AUTO) 7.3 K/uL (4.8-10.8)
--- NOTE | 2020-09-20 07:35 | NUR ---
Opening Notes Pt received resting in bed with eyes closed, pt is easily awaken to verbal stimuli. Bilateral wrist restraints in place. HOB greater than 30 degrees. Bed in lowest position with call light within reach.
[2020-09-20 07:53] LABS: ALANINE AMINOTRANSFERASE 19 U/L (12-78); ALBUMIN 2.3 g/dL (3.4-4.8); ANION GAP 6 (5-15); ASPARTATE AMINOTRANSFERASE 26 U/L (10-37); CALCIUM 7.8 mg/dL (8.4-11.0); CHLORIDE 101 mmol/L (98-107); CREATININE 0.75 mg/dL (0.55-1.30); GLUCOSE 131 mg/dL (70-99); PHOSPHORUS 2.1 mg/dL (2.7-4.5); POTASSIUM 4.1 mmol/L (3.5-5.1); SODIUM SERUM 139 mmol/L (136-145); UREA NITROGEN, BLOOD 22 mg/dL (8-21)
[2020-09-20] MEDS ORDERED: ACETYLCYSTEINE 20% 4 ML VIAL (RT) INH SCH (08:45)
[2020-09-20] MEDS: ASCORBIC ACID 500 MG TABLET PO SCH (09:00)
[2020-09-20] MEDS: tiZANidine HCL 4 MG TABLET PO SCH ×3 (09:00→19:48)
[2020-09-20] MEDS: DIVALPROEX SODIUM 250 MG TAB.SR.24H (DEPAKOTE ER) PO SCH ×2 (09:00→19:47)
[2020-09-20] MEDS: MEMANTINE HCL 5 MG TABLET PO SCH (09:00)
[2020-09-20] MEDS: PRAMIPEXOLE DI-HCL 0.25 MG TABLET PO SCH ×3 (09:00→19:47)
[2020-09-20] MEDS: MULTIVITAMINS TAB 1 TABLET PO SCH (09:00)
[2020-09-20] MEDS: GABAPENTIN 300 MG CAPSULE PO SCH ×3 (09:00→19:48)
[2020-09-20] MEDS: CILOSTAZOL 50 MG TABLET (PLETAL) PO SCH ×2 (09:00→19:48)
[2020-09-20] MEDS: DOCUSATE SODIUM 100 MG CAPSULE PO SCH ×2 (09:00→19:48)
[2020-09-20] MEDS: CARBIDOPA/LEVODOPA 25/250 MG TABLET PO SCH ×4 (09:00→19:48)
[2020-09-20] MEDS: PANTOPRAZOLE SODIUM 40 MG/VIAL (PROTONIX) IVP SCH (09:44)
--- NOTE | 2020-09-20 10:00 | NUR ---
Family Updated pts Maddi with pt update, all questions answered at this time.
--- NOTE | 2020-09-20 11:42 | NUR ---
Dietitian Recommendations *Recommend: D20% AA8.5% at 100ml/hr (goal rate), IL20% at 5ml/hr via peripheral line. Provides: 1464 Kcal, 102 gm protein, 2520ml fluids daily and GIR 2.6 gm CHO/kg/min. Meets: 79% of estimated calorie needs and 78% of upper end of estimated protein needs. *Keep NPO, advance diet per Speech therapist recommendation. Please see Nutritional Assessment for details. NEIL, RD
[2020-09-20] MEDS: AMIODARONE HCL IV SCH (13:18)
[2020-09-20] MEDS: D5W IV SCH (13:18)
--- NOTE | 2020-09-20 16:10 | NUR ---
CHG Pt provided CHG with total linen change, pt tolerated well.
--- NOTE | 2020-09-20 19:15 | NUR ---
Closing Notes Pt endorsed to night RN using SBAR.
--- NOTE | 2020-09-20 19:20 | NUR ---
Opening Note Received report from AM nurse using SBAR approach.
[2020-09-20] MEDS: FAT EMULSIONS 250 ML IV SCH (19:59)
[2020-09-20] MEDS ORDERED: [UNRECOGNIZED DRUG - OTHER] IV SCH ×8 (21:00)
[2020-09-20] MEDS ORDERED: NA PHOS IV SCH ×8 (21:00)
[2020-09-20] MEDS ORDERED: SODIUM CHLORIDE IV SCH ×8 (21:00)
[2020-09-20] MEDS ORDERED: TPN PERIPHERAL IV SCH ×8 (21:00)
[2020-09-21] VITALS (18 sets, daily range): BP systolic 90–138
--- NOTE | 2020-09-21 00:30 | NUR ---
deep nasal pharyngeal suction is performed. Patient tolerated the procedure well.
[2020-09-21] MEDS: IPRATROPIUM/ALBUTEROL SULFATE 3 ML AMPUL.NEB (DUONEB) INH SCH (01:51)
[2020-09-21] MEDS: PIPERACILLIN/TAZO 3.375/DEX-IS 50 ML IV SCH ×3 (05:03→16:15)
[2020-09-21] MEDS: AZITHROMYCIN 500 MG in NS 250 ML IV SCH (05:25)
[2020-09-21] MEDS: D5LR 1,000 ML IV SCH (05:25)
[2020-09-21 06:36] LABS: BASOPHILS % (AUTO) 0.1 % (0.0-2.0); HEMATOCRIT 33.7 % (36-54); HEMOGLOBIN 11.1 g/dL (14.0-18.0); LYMPHOCYTES # (AUTO) 0.3 K/uL (1.0-5.5); LYMPHOCYTES % (AUTO) 2.3 % (20.5-51.5); MEAN CORPUSCULAR HEMOGLOBIN 30 pg (27-31); MEAN CORPUSCULAR HGB CONC 33 % (32-36); MEAN CORPUSCULAR VOLUME 90 fL (79.0-98.0); MONOCYTES # (AUTO) 0.5 K/uL (0.0-1.0); NEUTROPHILS # (AUTO) 11.4 K/uL (1.8-7.7); NEUTROPHILS % (AUTO) 93.6 % (40.0-70.0); PLATELET COUNT (AUTO) 190 K/uL (130-430); RED BLOOD CELL COUNT(AUTO) 3.74 MIL/uL (4.2-6.2); RED CELL DISTRIBUTION WIDTH 14.9 % (9.0-15.0); WHITE BLOOD COUNT (AUTO) 12.2 K/uL (4.8-10.8)
[2020-09-21 07:06] LABS: ALANINE AMINOTRANSFERASE 15 U/L (12-78); ANION GAP 4 (5-15); ASPARTATE AMINOTRANSFERASE 21 U/L (10-37); CALCIUM 7.8 mg/dL (8.4-11.0); CHLORIDE 102 mmol/L (98-107); CREATININE 0.94 mg/dL (0.55-1.30); GLUCOSE 127 mg/dL (70-99); SODIUM SERUM 138 mmol/L (136-145); TOTAL BILIRUBIN 1.1 mg/dL (0.0-1.0); UREA NITROGEN, BLOOD 33 mg/dL (8-21)
--- NOTE | 2020-09-21 07:20 | NUR ---
Closing Note Endorsed report to AM nurse using SBAR approach.
--- NOTE | 2020-09-21 07:30 | NUR ---
Opening Note Received bedside report from endorsing RN for continuation of care. Received patient on BIPAP, no signs or symptoms of acute distress noted. RT at bedside. Bed locked in lowest position, bed alarm on, and call light within reach. Fall and safety precautions in place.
[2020-09-21] MEDS: MULTIVITAMINS TAB 1 TABLET PO SCH (08:39)
[2020-09-21] MEDS: DIVALPROEX SODIUM 250 MG TAB.SR.24H (DEPAKOTE ER) PO SCH (08:39)
[2020-09-21] MEDS: DOCUSATE SODIUM 100 MG CAPSULE PO SCH (08:39)
[2020-09-21] MEDS: PANTOPRAZOLE SODIUM 40 MG/VIAL (PROTONIX) IVP SCH (08:39)
[2020-09-21] MEDS: PRAMIPEXOLE DI-HCL 0.25 MG TABLET PO SCH ×2 (08:39→15:00)
[2020-09-21] MEDS: ASCORBIC ACID 500 MG TABLET PO SCH (08:40)
[2020-09-21] MEDS: tiZANidine HCL 4 MG TABLET PO SCH ×2 (08:40→15:00)
[2020-09-21] MEDS: CARBIDOPA/LEVODOPA 25/250 MG TABLET PO SCH ×3 (08:40→16:15)
[2020-09-21] MEDS: MEMANTINE HCL 5 MG TABLET PO SCH (08:40)
[2020-09-21] MEDS: CILOSTAZOL 50 MG TABLET (PLETAL) PO SCH (08:40)
[2020-09-21] MEDS: GABAPENTIN 300 MG CAPSULE PO SCH ×2 (08:40→15:00)
[2020-09-21] MEDS ORDERED: MORPHINE I.V. DRIP 100 ML IV SCH (09:00)
--- NOTE | 2020-09-21 09:01 | NUR ---
Dr. Mack at bedside examining patient. New orders received.
--- NOTE | 2020-09-21 09:09 | NUR ---
Dr. Mack here to see pt. Spoke with on the phone regarding code status. Full DNR obtained and comfort measures to be started.
--- NOTE | 2020-09-21 09:56 | NUR ---
Witnessed morphine drip titrated to 4 mg/hr.
--- NOTE | 2020-09-21 11:11 | NUR ---
Witnessed morphine drip titrated to 5 mg/hr.
[2020-09-21] MEDS ORDERED: NA PHOS 30 MM in NS 250 ML IV ONE (11:15)
--- NOTE | 2020-09-21 11:31 | NUR ---
at Bedside Patient's Maddi at bedside.
[2020-09-21] MEDS: AMIODARONE HCL IV SCH (12:00)
[2020-09-21] MEDS: D5W IV SCH (12:00)
--- NOTE | 2020-09-21 16:15 | NUR ---
Endorsement to [facility] Endorsed bedside report to [facility]ST RN using SBAR approach for continuation of care.
--- NOTE | 2020-09-21 18:30 | NUR ---
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 ACLS RN present at all times. No signs or symptoms of acute distress noted.
--- NOTE | 2020-09-21 18:35 | NUR ---
PT RECEIVED FROM ICU, PT APPEARS PALE. HEART RATE ON MONITOR IS 40 AND GOING DOWN, PT ON MORPHINE DRIP AT 5 MG PER HOURS.UNABLE TO DETECT ANY BP AND O2 SAT.
--- NOTE | 2020-09-21 18:55 | NUR ---
SPOKE WITH PT'S SPOUSE ON THE PHONE. PT IS AWARE THAT PT IS ACTIVELY DYING AND INFORMED HER THAT PT PT HAS NO MORE PULSE AND WE ARE WAITING FOR THE HEART TO BE ZERO ON THE MONITOR.
--- NOTE | 2020-09-21 19:05 | NUR ---
Pt endorsed to night [facility]. pt has no spontaneous respirations, no pulses, no apical pulse, no spontaneous breathing, pupils fixed and dilated. verifed with rn. newton.
--- NOTE | 2020-09-21 19:47 | NUR ---
RN ROUNDS Patient , 2 RNs verified, called , Maddi Beasley, updated her that patient had , information for mortuary provided. She states she will call the mortuary in the am.
[2020-09-21] MEDS ORDERED: NA PHOS IV SCH ×8 (21:00)
[2020-09-21] MEDS ORDERED: D5LR 1,000 ML IV SCH (21:00)
[2020-09-21] MEDS ORDERED: [UNRECOGNIZED DRUG - OTHER] IV SCH ×8 (21:00)
[2020-09-21] MEDS ORDERED: SODIUM CHLORIDE IV SCH ×8 (21:00)
[2020-09-21] MEDS ORDERED: TPN PERIPHERAL IV SCH ×8 (21:00)
--- NOTE | 2020-09-21 21:17 | NUR ---
RN ROUNDS Spoke to [facility], information provided. Admitting and custodial supervisor aware, Md aware of patient expiring.
--- NOTE | 2020-09-21 21:47 | NUR ---
Notified Dr. Ji s/shana Salvador
--- NOTE | 2020-09-22 12:12 | NUR ---
SS notes: SENIOR MORTGAGE LOAN PROCESSOR phoned spouse Maddi @ [phone] who stated that arrangements have been made with [employer] (p: [phone]). SENIOR MORTGAGE LOAN PROCESSOR phoned [employer] and confirmed arrangements but no chicken picker time available as of now. SENIOR MORTGAGE LOAN PROCESSOR spoke with Alejandra Tello who stated she received a call from [employer] already. SS will follow up.
== END 2020-09-21 22:58 | disposition expired | DRG 871 ==
LOC: SED 03:43 → STU 05:52 → SIC 09-19 08:35 → STU 09-21 19:28
PROVIDERS: ADMIT Internal Medicine; ATTEND Internal Medicine
PROC: 02HV33Z Insertion of Infusion Device into Superior Vena Cava, Percutaneous Approach (ICD-10-PCS; principal; 2020-09-19)
PROC: 5A09457 Assistance with Respiratory Ventilation, 24-96 Consecutive Hours, Continuous Positive Airway Pressure (ICD-10-PCS; 2020-09-19)
PROC: B548ZZA Ultrasonography of Superior Vena Cava, Guidance (ICD-10-PCS; 2020-09-19)
DX: A41.9 Sepsis, unspecified organism (principal); J69.0 Pneumonitis due to inhalation of food and vomit; J96.01 Acute respiratory failure with hypoxia; I21.4 Non-ST elevation (NSTEMI) myocardial infarction; N39.0 Urinary tract infection, site not specified; I24.8 Other forms of acute ischemic heart disease; J91.8 Pleural effusion in other conditions classified elsewhere; F02.80 Dementia in other diseases classified elsewhere, unspecified severity, without behavioral disturbance, psychotic disturbance, mood disturbance, and anxiety; G20 Parkinson's disease; I48.91 Unspecified atrial fibrillation; R00.0 Tachycardia, unspecified; I46.9 Cardiac arrest, cause unspecified; M19.90 Unspecified osteoarthritis, unspecified site; G89.4 Chronic pain syndrome; R13.10 Dysphagia, unspecified; I73.9 Peripheral vascular disease, unspecified; Z20.828 Contact with and (suspected) exposure to other viral communicable diseases; Z66 Do not resuscitate; Z51.5 Encounter for palliative care; Z74.01 Bed confinement status
CPT/HCPCS: 36415; 36600; 71045; 80053; 80061; 81000-TC; 82550-TC; 82728; 82803-TC; 82962; 83605; 83615-TC; 83735-TC; 83880; 84100-TC; 84484; 85025; 85379; 85384-TC; 85610-TC; 85730-TC; 86140; 87040-TC; 87070-TC; 87081; 87086; 87205-TC; 93005; 93306; 94640; 94660; 94668; 94760; 96365; 96366; 96368; 96375; 99291; C9113; G0378; J0456; J1100; J1815; J2270; J2543; J3370; J3475; J3490; J7050; J7060; J7131; J7608; J7613; U0003